=== PATIENT | female | born 1940 | race Caucasian/White ===

== ENCOUNTER → 2018-03-21 07:46 | Outpatient (CLI) | payer MEDICARE, SELFPAY ==
[2018-03-21 09:25] LABS: Alanine Aminotransferase 21 IU/L (9-52); Albumin 4.3 g/dL (3.5-5.0); Albumin Globulin Ratio 1.5 (1.0-2.8); Alkaline Phosphatase 48 U/L (38-126); Aspartate Aminotransferase 24 IU/L (14-36); BUN Creatinine Ratio 16.3 (6-22); Bilirubin Total 1.1 mg/dL (0.2-1.3); Blood Urea Nitrogen 13 mg/dL (7-17); Calcium 9.3 mg/dL (8.4-10.2); Carbon Dioxide 29 mmol/L (22-32); Chloride 104 mmol/L (98-107); Cholesterol 202 mg/dL (140-199); Estimated Glomerular Filt Rate > 60.0 mL/min (>60); Globulin 2.8 g/dL (1.7-4.1); Glucose 100 mg/dL (80-110); HDL Cholesterol 59 mg/dL (40-60); HEMOLYSIS < 15 (0-50); LDL Cholesterol Calculated 115 mg/dL (<100); Sodium 143 mmol/L (137-145); Total Protein 7.1 g/dL (6.3-8.2); Triglycerides 138 mg/dL (35-150)
[2018-03-21 09:41] LABS: Vitamin D 25 Hydroxy (D3) 47.9 ng/mL (30.0-100.0)
== END ==
PROVIDERS: PCP Physician Assistant; Visit Provider Physician Assistant
DX: M85.88 Other specified disorders of bone density and structure, other site (principal); Z78.0 Asymptomatic menopausal state; E28.39 Other primary ovarian failure; E78.5 Hyperlipidemia, unspecified
CPT/HCPCS: 36415; 77080; 80053; 80061; 82306

== ENCOUNTER → 2018-03-22 08:25 | Outpatient (CLI) | payer MEDICARE, SELFPAY ==
--- NOTE | 2018-03-22 08:28 | DI.MG.S_ITS ---
BILATERAL DIGITAL SCREENING MAMMOGRAM 3D/2D WITH CAD: 03/22/2018 CLINICAL: Routine screening. Comparison is made to exams dated: 03/15/2017 mammogram, 03/08/2016 mammogram, and 03/07/2015 mammogram - [facility]. The tissue of both breasts is heterogeneously dense. This may lower the sensitivity of mammography. Current study was also evaluated with a Computer Aided Detection (CAD) system. No significant masses, calcifications, or other findings are seen in either breast. There has been no significant interval change. IMPRESSION: NEGATIVE There is no mammographic evidence of malignancy. A 1 year screening mammogram is recommended. This exam was interpreted at Station ID: [id number]. NOTE: For mammograms, a report in lay terms will be sent to the patient. Approximately 15% of breast malignancies will not be visualized mammographically. In the management of a palpable breast mass, a negative mammogram must not discourage biopsy of a clinically suspicious lesion. Electronically Signed By: Kimberly deal/lizette:03/24/2018 14:48:08 letter sent: Normal Exam ACR BI-RADS Category 1: Negative 3341F
== END ==
PROVIDERS: PCP Physician Assistant; Visit Provider Physician Assistant
DX: Z12.31 Encounter for screening mammogram for malignant neoplasm of breast (principal)
CPT/HCPCS: 77063; 77067

== ENCOUNTER → 2018-08-22 10:25 | Outpatient (CLI) | payer MEDICARE, SELFPAY ==
--- NOTE | 2018-08-22 10:27 | DI.RAD.S_ITS ---
PROCEDURE: XR LUMBAR SPINE 2-3V INDICATIONS: back pain TECHNIQUE: 3 views of the lumbar spine were acquired. COMPARISON: None. FINDINGS: Bones: 5 [id number] vertebrae are present. There is minimal retrolisthesis of L2 on L3. No vertebral body compression fractures. Degenerative endplate changes are noted throughout lumbar spine no prominent at L2-3 level. No suspicious bony lesions. Soft tissues: Overlying bowel gas pattern is normal. No suspicious soft tissue calcifications. IMPRESSION: Minimal retrolisthesis of L2 on L3. Degenerative disc disease throughout lumbar spine. No acute compression fracture. Dictated by: Richie Padilla M.D. on 08/22/2018 at 12:14 Approved by: Richie Padilla M.D. on 08/22/2018 at 12:16
--- NOTE | 2018-08-22 10:27 | DI.RAD.S_ITS ---
PROCEDURE: XR THORACIC SPINE 3V INDICATIONS: back pain TECHNIQUE: 3 views of the thoracic spine were acquired. COMPARISON: None. FINDINGS: Bones: No fractures or dislocations. No suspicious bony lesions. 12 pairs of ribs are noted, and appear intact where visualized. Very mild degenerative endplate changes are noted in mid to lower thoracic spine. Soft tissues: No paravertebral stripe thickening. IMPRESSION: Mild degenerative disc disease in mid to lower thoracic spine. No compression fracture or spondylolisthesis. Dictated by: Richie Padilla M.D. on 08/22/2018 at 12:16 Approved by: Richie Padilla M.D. on 08/22/2018 at 12:17
== END ==
PROVIDERS: PCP Physician Assistant; Visit Provider Registered Nurse
DX: M54.9 Dorsalgia, unspecified (principal); M51.36 Other intervertebral disc degeneration, lumbar region; M51.34 Other intervertebral disc degeneration, thoracic region
CPT/HCPCS: 72072; 72100

== ENCOUNTER → 2019-03-28 08:18 | Outpatient (CLI) | payer MEDICARE, SELFPAY ==
--- NOTE | 2019-03-28 | DI.MG.S_ITS ---
BILATERAL DIGITAL SCREENING MAMMOGRAM 3D/2D WITH CAD: 03/28/2019 CLINICAL: Routine screening. Comparison is made to exams dated: 03/22/2018 mammogram, 03/15/2017 mammogram, and 03/08/2016 mammogram - [facility]. The tissue of both breasts is heterogeneously dense. This may lower the sensitivity of mammography. Current study was also evaluated with a Computer Aided Detection (CAD) system. No significant masses, calcifications, or other findings are seen in either breast. There has been no significant interval change. IMPRESSION: NEGATIVE There is no mammographic evidence of malignancy. A 1 year screening mammogram is recommended. This exam was interpreted at Station ID: [id number]. NOTE: For mammograms, a report in lay terms will be sent to the patient. Approximately 15% of breast malignancies will not be visualized mammographically. In the management of a palpable breast mass, a negative mammogram must not discourage biopsy of a clinically suspicious lesion. Electronically Signed By: Elkin hernandez/lizette:03/30/2019 07:34:27 letter sent: Normal Exam ACR BI-RADS Category 1: Negative 3341F
== END ==
PROVIDERS: PCP Physician Assistant; Visit Provider Physician Assistant
DX: Z12.31 Encounter for screening mammogram for malignant neoplasm of breast (principal)
CPT/HCPCS: 77063; 77067

== ENCOUNTER → 2019-04-16 08:32 | Outpatient (CLI) | payer MEDICARE, SELFPAY ==
[2019-04-16 09:57] LABS: Alanine Aminotransferase 15 IU/L (<35); Albumin 4.3 g/dL (3.5-5.0); Albumin Globulin Ratio 1.7 (1.0-2.8); Alkaline Phosphatase 45 U/L (38-126); Aspartate Aminotransferase 25 IU/L (14-36); BUN Creatinine Ratio 21.3 (6-22); Bilirubin Total 1.6 mg/dL (0.2-1.3); Blood Urea Nitrogen 17 mg/dL (7-17); Calcium 9.2 mg/dL (8.4-10.2); Carbon Dioxide 31 mmol/L (22-32); Chloride 103 mmol/L (98-107); Cholesterol 218 mg/dL (140-199); Estimated Glomerular Filt Rate > 60.0 mL/min (>60); Globulin 2.6 g/dL (1.7-4.1); Glucose 99 mg/dL (80-110); HDL Cholesterol 62 mg/dL (40-60); HEMOLYSIS < 15 (0-50); LDL Cholesterol Calculated 140 mg/dL (<100); Potassium 4.6 mmol/L (3.4-5.1); Sodium 140 mmol/L (137-145); Total Protein 6.9 g/dL (6.3-8.2); Triglycerides 82 mg/dL (35-150)
[2019-04-16 10:36] LABS: Vitamin D 25 Hydroxy (D3) 46.9 ng/mL (30.0-100.0)
== END ==
PROVIDERS: PCP Physician Assistant; Visit Provider Physician Assistant
DX: E78.5 Hyperlipidemia, unspecified (principal); M81.0 Age-related osteoporosis without current pathological fracture
CPT/HCPCS: 36415; 80053; 80061; 82306

== ENCOUNTER → 2019-10-12 13:54 | Outpatient (CLI) | payer MEDICARE, SELFPAY ==
[2019-10-12 14:46] LABS: Bilirubin Total 1.2 mg/dL (0.2-1.3); Cholesterol 210 mg/dL (140-199); HDL Cholesterol 59 mg/dL (40-60); LDL Cholesterol Calculated 111 mg/dL (<100); Triglycerides 200 mg/dL (35-150)
== END ==
PROVIDERS: PCP Physician Assistant; Referring Provider Family Medicine; Visit Provider Physician Assistant
DX: E78.5 Hyperlipidemia, unspecified (principal); R17 Unspecified jaundice
CPT/HCPCS: 36415; 80061; 82247

== ENCOUNTER → 2020-03-29 15:58 | Outpatient (CLI) | payer MEDICARE, SELFPAY ==
--- NOTE | 2020-03-29 16:02 | DI.MG.S_ITS ---
BILATERAL DIGITAL SCREENING MAMMOGRAM 3D/2D WITH CAD: 03/29/2020 CLINICAL: Routine screening. Comparison is made to exams dated: 03/28/2019 mammogram, 03/22/2018 mammogram, and 03/15/2017 mammogram - [facility]. The tissue of both breasts is heterogeneously dense. This may lower the sensitivity of mammography. Current study was also evaluated with a Computer Aided Detection (CAD) system. No significant masses, calcifications, or other findings are seen in either breast. There has been no significant interval change. IMPRESSION: NEGATIVE There is no mammographic evidence of malignancy. A 1 year screening mammogram is recommended. This exam was interpreted at Station ID: [id number]. NOTE: For mammograms, a report in lay terms will be sent to the patient. Approximately 15% of breast malignancies will not be visualized mammographically. In the management of a palpable breast mass, a negative mammogram must not discourage biopsy of a clinically suspicious lesion. Electronically Signed By: Kimberly deal/lizette:03/29/2020 16:29:52 letter sent: Normal Exam ACR BI-RADS Category 1: Negative 3341F
== END ==
PROVIDERS: PCP Family Medicine; Referring Provider Family Medicine; Visit Provider Family Medicine
DX: Z12.31 Encounter for screening mammogram for malignant neoplasm of breast (principal)
CPT/HCPCS: 77063; 77067

== ENCOUNTER → 2020-05-19 14:01 | Outpatient (CLI) | payer MEDICARE, SELFPAY ==
--- NOTE | 2020-05-19 14:03 | DI.RAD.S_ITS ---
PROCEDURE: XR DEXA AXIAL SKELETON INDICATIONS: Osteoporotic Risk COMPARISON: [facility], CR, XR DEXA AXIAL SKELETON, 03/21/2018, 13:22. FINDINGS: This blank DEXA report has been sent in error by the PACS system. The correct and complete report will be forthcoming in 1-2 days. Thank you for your patience and understanding. Dictated by: Shawna Agarwal MD, PhD on 05/19/2020 at 17:21 Approved by: Shawna Agarwal MD, PhD on 05/19/2020 at 17:21
== END ==
PROVIDERS: PCP Family Medicine; Referring Provider Family Medicine; Visit Provider Family Medicine
DX: M85.851 Other specified disorders of bone density and structure, right thigh (principal); Z78.0 Asymptomatic menopausal state; Z82.62 Family history of osteoporosis
CPT/HCPCS: 77080

== ENCOUNTER → 2020-09-08 14:24 | Outpatient (CLI) | payer MEDICARE, SELFPAY ==
--- NOTE | 2020-09-08 14:27 | DI.RAD.S_ITS ---
PROCEDURE: XR HIP W PEL IF DONE RT 2V COMPARISON: None. INDICATIONS: chronic right hip pain FINDINGS: A single view of the pelvis and lateral view of the right hip was performed. Both hips have degenerative changes consistent with osteoarthritis. No fracture. The right sacroiliac joint has degenerative changes. IMPRESSION: No acute abnormality. Degenerative changes of both hips consistent with osteoarthritis. Dictated by: Efrain Llanos M.D. on 09/08/2020 at 18:25 Approved by: Efrain Llanos M.D. on 09/08/2020 at 18:27
--- NOTE | 2020-09-08 14:27 | DI.RAD.S_ITS ---
PROCEDURE: XR LUMBAR SPINE 2-3V INDICATIONS: lower back pain TECHNIQUE: 3 views of the lumbar spine were acquired. COMPARISON: [facility], , XR LUMBAR SPINE 2-3V, 08/22/2018, 10:35. FINDINGS: Bones: There are multilevel degenerative changes of the lumbar spine. There is disc space narrowing at L2-3. No vertebral body height loss. The sacroiliac joints are normal. No fracture. Soft tissues: Overlying bowel gas pattern is normal. No suspicious soft tissue calcifications. IMPRESSION: 1. Multilevel degenerative changes. 2. 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 Dictated by: Efrain Llanos M.D. on 09/08/2020 at 18:27 Approved by: Efrain Llanos M.D. on 09/08/2020 at 18:28
== END ==
PROVIDERS: PCP Family Medicine; Referring Provider Registered Nurse; Visit Provider Registered Nurse
DX: M25.551 Pain in right hip (principal)
CPT/HCPCS: 72100; 73502

== ENCOUNTER → 2020-09-09 08:35 | Outpatient (CLI) | payer MEDICARE, SELFPAY ==
[2020-09-09 09:57] LABS: Alanine Aminotransferase 16 IU/L (<35); Albumin 4.1 g/dL (3.5-5.0); Albumin Globulin Ratio 1.5 (1.0-2.8); Alkaline Phosphatase 41 U/L (38-126); Aspartate Aminotransferase 26 IU/L (14-36); BUN Creatinine Ratio 26.4 (6-22); Bilirubin Total 1.4 mg/dL (0.2-1.3); Blood Urea Nitrogen 19 mg/dL (7-17); Calcium 9.4 mg/dL (8.4-10.2); Carbon Dioxide 31 mmol/L (22-32); Chloride 103 mmol/L (98-107); Cholesterol 197 mg/dL (140-199); Estimated Glomerular Filt Rate > 60.0 mL/min (>60); Globulin 2.8 g/dL (1.7-4.1); Glucose 95 mg/dL (80-110); HDL Cholesterol 63 mg/dL (40-60); HEMOLYSIS < 15 (0-50); LDL Cholesterol Calculated 116 mg/dL (<100); Sodium 138 mmol/L (137-145); Total Protein 6.9 g/dL (6.3-8.2); Triglycerides 89 mg/dL (35-150)
== END ==
PROVIDERS: PCP Family Medicine; Referring Provider Registered Nurse; Visit Provider Registered Nurse
DX: I10 Essential (primary) hypertension (principal); E78.5 Hyperlipidemia, unspecified
CPT/HCPCS: 36415; 80053; 80061

== ENCOUNTER → 2020-09-23 08:40 | Outpatient (CLI) | payer MEDICARE, SELFPAY ==
[2020-09-23 10:03] LABS: Add Manual Diff / Slide Review NO; Basophils Absolute Auto 100 /uL (0-100); Basophils Percent Auto 1.4 % (0-2); Eosinophils Absolute Auto 100 /uL (0-450); Eosinophils Percent Auto 3.1 % (2-4); Hemoglobin 13.3 g/dL (12.0-16.0); Lymphocytes Absolute Auto 1400 /uL (1100-4500); Lymphocytes Percent Auto 32.3 % (25-40); Mean Corpuscular HGB Conc 33.2 % (30-36); Mean Corpuscular Hemoglobin 31.1 PG (26-34); Mean Corpuscular Volume 93.7 fL (80-100); Monocytes Absolute Auto 300 /uL (0-900); Monocytes Percent Auto 7.1 % (3-14); Neutrophils Absolute Auto 2500 /uL (1500-7000); Neutrophils Percent Auto 56.1 % (50-75); Platelet Count 301 X10^3/uL (150-400); Red Blood Cell Count 4.27 X10^6/uL (4.0-5.2); Red Cell Distribution Width 13.1 % (11.6-14.8); White Blood Cell Count 4.4 X10^3/uL (4.5-11.0)
[2020-09-23 10:35] LABS: Alanine Aminotransferase 13 IU/L (<35); Albumin 3.7 g/dL (3.5-5.0); Albumin Globulin Ratio 1.4 (1.0-2.8); Alkaline Phosphatase 41 U/L (38-126); Aspartate Aminotransferase 24 IU/L (14-36); BUN Creatinine Ratio 22.5 (6-22); Bilirubin Total 1.2 mg/dL (0.2-1.3); Blood Urea Nitrogen 16 mg/dL (7-17); Calcium 9.1 mg/dL (8.4-10.2); Carbon Dioxide 29 mmol/L (22-32); Chloride 104 mmol/L (98-107); Cholesterol 176 mg/dL (140-199); Estimated Glomerular Filt Rate > 60.0 mL/min (>60); Globulin 2.6 g/dL (1.7-4.1); Glucose 93 mg/dL (80-110); HDL Cholesterol 56 mg/dL (40-60); HEMOLYSIS < 15 (0-50); LDL Cholesterol Calculated 105 mg/dL (<100); Potassium 4.1 mmol/L (3.4-5.1); Sodium 138 mmol/L (137-145); Total Protein 6.3 g/dL (6.3-8.2); Triglycerides 77 mg/dL (35-150)
== END ==
PROVIDERS: PCP Family Medicine; Referring Provider Registered Nurse; Visit Provider Registered Nurse
DX: R17 Unspecified jaundice (principal); E78.5 Hyperlipidemia, unspecified; E80.6 Other disorders of bilirubin metabolism; I10 Essential (primary) hypertension
CPT/HCPCS: 36415; 80053; 80061; 85025

== ENCOUNTER 2020-10-27 08:15 | Outpatient (RCR) | payer MEDICARE, SELFPAY ==
--- NOTE | 2020-10-13 12:33 | PT.OIE ---
Current Diagnoses Unspecified osteoarthritis, unspecified site (10/13/20) Other intervertebral disc degeneration, lumbar region (10/13/20) Past Medical History (Last Updated 09/09/20 @ 23:48 by NICHOLAS De Jesus) Elevated bilirubin Hypertension Lower back pain Right hip pain Well adult Past Surgical History (Last Reviewed 09/08/20 @ 14:31 by NICHOLAS De Jesus) Status post appendectomy Status post tubal ligation Visit Care Team Role Provider Type Werner Toscano DO Family Provider Physician Primary Care Provider Specialty: Family Practice Address: [address] [place] [address] Email: [email or web address] NICHOLAS De Jesus Attending Provider Advanced General Merchandise Manager Referring Provider Specialty: Medical Address: [address] [place] [address], [facility] Email: [email or web address] Physical Therapy Initial Evaluation PT-OP-A Visit Information Start: 10/13/20 12:05 Freq: Status: Active Protocol: Document 10/13/20 12:05 (Rec: 10/13/20 12:32 [email or web address]) Out-Patient Physical Therapy Visit Information Visit Information Visit Type Initial Evaluation Visit Start Time 09:45 Visit Stop Time 10:30 Total Visit Minutes 45 Visit Number 04/26 Number of CULTURIST Visits 0 Evaluation Information Evaluation Date 10/13/20 Precautions Precautions latex allergy PT-OP-B Current Condition Start: 10/13/20 12:05 Freq: Status: Active Protocol: Document 10/13/20 12:05 (Rec: 10/13/20 12:32 [email or web address]) Current Condition History of Current Condition Onset Date Last fall Current Complaints Bilateral hip pain and stiffness History of Current Condition Zenaida is a 80 yo heathy looking female here for her ongoing bilateral hip pain started last fall. Pt stated her pain is at 6/10 after staying in one position for too long. Getting up from a seated position and taking the first step after standing for awhile tend to hurt her the most. Warm weather; heat pad and Aleve are all helpful. She had tried sitting yoga the past few months and noticed it was helpful but she stopped because she strained her shoulder. Pt walks 1.5 mile in the morning then 3-4 miles in the afternoon. Begining of the walk tends to be hurtful but lessen after. Prior Treatments and Tests B Hip x-ray 09/08/20 IMPRESSION:No acute abnormality. Degenerative changes of both hips consistent with osteoarthritis . lumbar x-ray 09/08/20 IMPRESSION: 1. Multilevel degenerative changes. 2. 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 Treatment Goals Patient/Caregiver Goals 1. To have a home exercise program to address her symptoms 2. to strengthen bilateral LEs PT-OP-C Subjective Start: 10/13/20 12:05 Freq: Status: Active Protocol: Document 10/13/20 12:05 (Rec: 10/13/20 12:32 [email or web address]) Patient Questionnaires Lower Extremity Functional Scale LEFS Score 42 LEFS Impairment 40 to 59% Impaired (Score 32- 47) Other Questionnaire Name and Score pt did not score for questions 16-19 OP-PT Pain Assessment Location B hip Pain Location Details at hip joint to upper thighs Intensity 6 Scale Used Numeric (0 - 10) Description Aching,Pressure Frequency Frequent Pain Aggravating Factors Position,Changing Position, Standing,Sitting,Bending Pain Alleviating Factors Heat,Exercise,Distraction PT-OP-D Balance Start: 10/13/20 12:05 Freq: Status: Active Protocol: Document 10/13/20 12:05 (Rec: 10/13/20 12:32 [email or web address]) Balance Tests Single Limb Standing Single Limb- Right 18,20 Single Limb- Left 21,18 Other Other Balance Tests Performed SLS with UE reach out to balance no discomfort PT-OP-F Manual Assessment Start: 10/13/20 12:05 Freq: Status: Active Protocol: Document 10/13/20 12:05 (Rec: 10/13/20 12:32 [email or web address]) Manual Assessments Soft Tissue Assessment Soft Tissue Mobility Assessment hypertonicity at bilateral hip flexors, gluteal neela PT-OP-K Range of Motion Start: 10/13/20 12:05 Freq: Status: Active Protocol: Document 10/13/20 12:05 (Rec: 10/13/20 12:32 [email or web address]) Hip Goniometric Range of Motion Hip Right Active Hip ROM WFL Yes Straight Leg Raise 90 Left Active Hip ROM WFL Yes Straight Leg Raise 90 PT-OP-L Special Tests Start: 10/13/20 12:05 Freq: Status: Active Protocol: Document 10/13/20 12:05 (Rec: 10/13/20 12:32 [email or web address]) Special Tests Hip Special Tests FADDIR Test Results +VE B Comments pain reproduced at anterior hip joints JOSE DAVID Test Results +VE B Comments pain reproduced at anterior hip joints Scour Test Test Results +VE B Comments pain reproduced at posterior hip joints Straight Leg Raise Test Results -ve Comments >90 no discomfort PT-OP-M Strength Start: 10/13/20 12:05 Freq: Status: Active Protocol: Document 10/13/20 12:05 (Rec: 10/13/20 12:32 [email or web address]) Hip Strength Hip Manual Muscle Testing Right Flexion (L2) 4+ Good+ Extension (S1) 4+ Good+ Abduction 4+ Good+ Adduction 4+ Good+ Comments no pain with resistance Left Flexion (L2) 4+ Good+ Extension (S1) 4+ Good+ Abduction 4+ Good+ Adduction 4+ Good+ Comments no pain with resistance Knee Strength Knee Manual Muscle Testing Left Flexion (S2) 4- Good- Extension (L3) 4- Good- Right Flexion (S2) 4- Good- Extension (L3) 4 Good Ankle/Foot Strength Ankle and Foot Manual Muscle Testing Right Dorsiflexion (L4) 4+ Good+ Plantarflexion (S1) 4+ Good+ Left Dorsiflexion (L4) 4+ Good+ Plantarflexion (S1) 4+ Good+ PT-OP-T Assessment and Plan Start: 10/13/20 12:05 Freq: Status: Active Protocol: Document 10/13/20 12:05 (Rec: 10/13/20 12:32 [email or web address]) Physical Therapy Assessment Rehab Potential Rehabilitation Potential Excellent Evaluation Complexity Number of Personal Factors/Comorbidities 0 Number of Body Systems Impaired 1-2 Clinical Presentation at Evaluation Stable Impairments Impairments Activity Tolerance,Balance, Functional Activities, Functional Mobility,Gait,Pain, Posture,ROM,Soft Tissue Mobility,Strength,Transfers Goals HEP Impairment pt does not have HEP Short Term Goal (STG) pt will be able to partcipate daily HEP safely and independently for pain management and improved overall hip stiffness. STG Duration 4 weeks pain Impairment pain 6/10 with movement initiation after staying in one position Short Term Goal (STG) pt will have pain no more than 4/10 with gait initiation after prolonged sitting. STG Duration 4 weeks Nodulizer Goal (LTG) pt will have pain no more than 2/10 with gait initiation after prolonged sitting. LTG Duration 8 weeks LEFS Impairment pt scores 42 on LEFS Short Term Goal (STG) pt will show improved overall hip strength to score >50 on LEFS STG Duration 4 weeks Longterm Goal (LTG) pt will show improved overall hip strength to score >60 on LEFS LTG Duration 8 weeks Assessment Summary Assessment Zenaida is a 80yo healthy looking female here for her chronic bilateral hip pain started last fall. Upon assessment, pt presents symptoms of classic hip OA bilaterally which aligns with her X-ray findings. Fortunately, pt does not have signs lumbar radiculopathy or low back discomfort. Her overall hip AROM and strength = WFL. She does have joint pain with PROM at end range. Pt will benefit from skilled therapy to develop a ROM ex routine with low impact strengthen ex to maintain her joint health. Physical Therapy Plan Frequency and Duration Frequency of Treatment 2x/Week Duration of Treatment 8 weeks Plan of Care Start Date 10/13/20 Plan of Care End Date 12/12/20 Therapeutic Interventions Therapeutic Interventions Aquatic Therapy,Balance Training,Gait Training,Home Exercise Program,Manual Therapy,Neuromuscular Re- education,Patient/Caregiver Education,Self-Care/Home Management,Soft Tissue Mobilization,Taping, Therapeutic Activities, Therapeutic Exercises Modalities Cold Pack/Ice Massage,Electric Stimulation,Hot Packs, Infrared Therapy,Traction- Mechanical,Ultrasound Next Visit Focus/Plan Next Note Type Treatment Note Next Visit Plan hip stretches figure 4, piriformis, milagro stretch hip strengthening ex bike, leg press
--- NOTE | 2020-10-13 12:33 | PT.OPPOC ---
Physical, Occupational & Speech Therapy At [facility] Current Diagnoses Unspecified osteoarthritis, unspecified site (10/13/20) Other intervertebral disc degeneration, lumbar region (10/13/20) Visit Care Team Role Provider Type Werner Toscano DO Family Provider Physician Primary Care Provider Specialty: Family Practice Address: [address] [place] [address], [facility] Email: [email or web address] NICHOLAS De Jesus Attending Provider Advanced Bottle Blowing Machine Tender Referring Provider Specialty: Medical Address: [address] [place] [address], [id number] Email: [email or web address] Plan Of Care PT-OP-T Assessment and Plan Start: 10/13/20 12:05 Freq: Status: Active Protocol: Document 10/13/20 12:05 (Rec: 10/13/20 12:32 [email or web address]) Physical Therapy Assessment Rehab Potential Rehabilitation Potential Excellent Evaluation Complexity Number of Personal Factors/Comorbidities 0 Number of Body Systems Impaired 1-2 Clinical Presentation at Evaluation Stable Impairments Impairments Activity Tolerance,Balance, Functional Activities, Functional Mobility,Gait,Pain, Posture,ROM,Soft Tissue Mobility,Strength,Transfers Goals HEP Impairment pt does not have HEP Short Term Goal (STG) pt will be able to partcipate daily HEP safely and independently for pain management and improved overall hip stiffness. STG Duration 4 weeks pain Impairment pain 6/10 with movement initiation after staying in one position Short Term Goal (STG) pt will have pain no more than 4/10 with gait initiation after prolonged sitting. STG Duration 4 weeks Fdc Goal (LTG) pt will have pain no more than 2/10 with gait initiation after prolonged sitting. LTG Duration 8 weeks LEFS Impairment pt scores 42 on LEFS Short Term Goal (STG) pt will show improved overall hip strength to score >50 on LEFS STG Duration 4 weeks Fdc Goal (LTG) pt will show improved overall hip strength to score >60 on LEFS LTG Duration 8 weeks Assessment Summary Assessment Zenaida is a 80yo healthy looking female here for her chronic bilateral hip pain started last fall. Upon assessment, pt presents symptoms of classic hip OA bilaterally which aligns with her X-ray findings. Fortunately, pt does not have signs lumbar radiculopathy or low back discomfort. Her overall hip AROM and strength = WFL. She does have joint pain with PROM at end range. Pt will benefit from skilled therapy to develop a ROM ex routine with low impact strengthen ex to maintain her joint health. Physical Therapy Plan Frequency and Duration Frequency of Treatment 2x/Week Duration of Treatment 8 weeks Plan of Care Start Date 10/13/20 Plan of Care End Date 12/12/20 Therapeutic Interventions Therapeutic Interventions Aquatic Therapy,Balance Training,Gait Training,Home Exercise Program,Manual Therapy,Neuromuscular Re- education,Patient/Caregiver Education,Self-Care/Home Management,Soft Tissue Mobilization,Taping, Therapeutic Activities, Therapeutic Exercises Modalities Cold Pack/Ice Massage,Electric Stimulation,Hot Packs, Infrared Therapy,Traction- Mechanical,Ultrasound Next Visit Focus/Plan Next Note Type Treatment Note Next Visit Plan hip stretches figure 4, piriformis, milagro stretch hip strengthening ex bike, leg press Plan of Care Dates Plan of Care Start Date 10/13/20 Plan of Care End Date 12/12/20 Electronically Signed by: Priscilla Holbrook PT 10/13/20 1634 Please Sign and Return: I have reviewed this Plan of Care and certify that the skilled therapy services above are required to meet the patient?s needs. Physician Signature Date Printed Name and Credentials Clinical Instructor Signature Printed Name and Credentials
--- NOTE | 2020-10-21 11:56 | PT.OTN ---
Current Diagnoses Unspecified osteoarthritis, unspecified site (10/21/20) Other intervertebral disc degeneration, lumbar region (10/21/20) Physical Therapy Treatment Note PT-OP-A Visit Information Start: 10/13/20 12:05 Freq: Status: Active Protocol: Document 10/21/20 11:16 HH (Rec: 10/21/20 11:55 [id number]) Out-Patient Physical Therapy Visit Information Visit Information Visit Type Treatment Note Visit Start Time 11:17 Visit Stop Time 12:10 Total Visit Minutes 53 Visit Number 05/27 Number of AIRCRAFT STRUCTURAL REPAIRER Visits 0 PT-OP-B Current Condition Start: 10/13/20 12:05 Freq: Status: Active Protocol: Document 10/13/20 12:05 HH (Rec: 10/13/20 12:32 HH [email or web address]) Current Condition History of Current Condition Onset Date Last fall Current Complaints Bilateral hip pain and stiffness History of Current Condition Zenaida is a 80 yo heathy looking female here for her ongoing bilateral hip pain started last fall. Pt stated her pain is at 6/10 after staying in one position for too long. Getting up from a seated position and taking the first step after standing for awhile tend to hurt her the most. Warm weather; heat pad and Aleve are all helpful. She had tried sitting yoga the past few months and noticed it was helpful but she stopped because she strained her shoulder. Pt walks 1.5 mile in the morning then 3-4 miles in the afternoon. Begining of the walk tends to be hurtful but lessen after. Prior Treatments and Tests B Hip x-ray 09/08/20 IMPRESSION:No acute abnormality. Degenerative changes of both hips consistent with osteoarthritis . lumbar x-ray 09/08/20 IMPRESSION: 1. Multilevel degenerative changes. 2. 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 Treatment Goals Patient/Caregiver Goals 1. To have a home exercise program to address her symptoms 2. to strengthen bilateral LEs PT-OP-C Subjective Start: 10/13/20 12:05 Freq: Status: Active Protocol: Document 10/21/20 11:16 HH (Rec: 10/21/20 11:55 [id number]) OP-PT Subjective Patient Comments Patient Comments I walked a lot outdoor for the past couple so it did irritate my hips. I did rowing the other day and my hip were fine. PT-OP-D Balance Start: 10/13/20 12:05 Freq: Status: Active Protocol: Document 10/13/20 12:05 (Rec: 10/13/20 12:32 [email or web address]) Balance Tests Single Limb Standing Single Limb- Right 18,20 Single Limb- Left 21,18 Other Other Balance Tests Performed SLS with UE reach out to balance no discomfort PT-OP-F Manual Assessment Start: 10/13/20 12:05 Freq: Status: Active Protocol: Document 10/13/20 12:05 HH (Rec: 10/13/20 12:32 [email or web address]) Manual Assessments Soft Tissue Assessment Soft Tissue Mobility Assessment hypertonicity at bilateral hip flexors, gluteal neela PT-OP-K Range of Motion Start: 10/13/20 12:05 Freq: Status: Active Protocol: Document 10/13/20 12:05 HH (Rec: 10/13/20 12:32 [email or web address]) Hip Goniometric Range of Motion Hip Right Active Hip ROM WFL Yes Straight Leg Raise 90 Left Active Hip ROM WFL Yes Straight Leg Raise 90 PT-OP-L Special Tests Start: 10/13/20 12:05 Freq: Status: Active Protocol: Document 10/13/20 12:05 (Rec: 10/13/20 12:32 [email or web address]) Special Tests Hip Special Tests FADDIR Test Results +VE B Comments pain reproduced at anterior hip joints JOSE DAVID Test Results +VE B Comments pain reproduced at anterior hip joints Scour Test Test Results +VE B Comments pain reproduced at posterior hip joints Straight Leg Raise Test Results -ve Comments >90 no discomfort PT-OP-M Strength Start: 10/13/20 12:05 Freq: Status: Active Protocol: Document 10/13/20 12:05 HH (Rec: 10/13/20 12:32 [email or web address]) Hip Strength Hip Manual Muscle Testing Right Flexion (L2) 4+ Good+ Extension (S1) 4+ Good+ Abduction 4+ Good+ Adduction 4+ Good+ Comments no pain with resistance Left Flexion (L2) 4+ Good+ Extension (S1) 4+ Good+ Abduction 4+ Good+ Adduction 4+ Good+ Comments no pain with resistance Knee Strength Knee Manual Muscle Testing Left Flexion (S2) 4- Good- Extension (L3) 4- Good- Right Flexion (S2) 4- Good- Extension (L3) 4 Good Ankle/Foot Strength Ankle and Foot Manual Muscle Testing Right Dorsiflexion (L4) 4+ Good+ Plantarflexion (S1) 4+ Good+ Left Dorsiflexion (L4) 4+ Good+ Plantarflexion (S1) 4+ Good+ PT-OP-Q Treatments Start: 10/13/20 12:05 Freq: Status: Active Protocol: Document 10/21/20 11:16 HH (Rec: 10/21/20 11:55 [id number]) Cardio Equipment Recumbent Bicycle Duration (Minutes) 2 Resistance 5 Other reports of hip pain. Bicycle (Upright) Duration (Minutes) 4 Resistance 5 Seat Position 4 Other no discomfort Therapeutic Exercises Supine Exercises milagro stretch Reps/Minutes 15 sec x 4 Comments for HEP. figure 4 Reps/Minutes 15 sec x 4 Comments for HEP piriformis stretch Reps/Minutes 15 sec x 4 Comments pain at anterior hip, discontinue Standing Exercises hip ext Standing Exercise Name elbow on table Side bilateral Reps/Minutes 8x2 Comments for HEP hip abd Side bilateral Reps/Minutes 8 x2 Comments for HEP Manual Therapy Treatment Soft Tissue Mobilization hip flexors Mobilization Type Sustained Pressure,Trigger Point Release Intensity/Depth Moderate Body Position Supine Comments significant toncity noted but relieved after PT-OP-R Modalities Start: 10/13/20 12:05 Freq: Status: Active Protocol: Document 10/21/20 11:16 HH (Rec: 10/21/20 11:56 [id number]) Hot Pack/Cold Pack Treatment Hot Pack Location B hips Patient Position Hooklying Treatment Duration (minutes) 10 Patient Tolerance Good PT-OP-T Assessment and Plan Start: 10/13/20 12:05 Freq: Status: Active Protocol: Document 10/21/20 11:16 (Rec: 10/21/20 11:55 [id number]) Physical Therapy Assessment Goals HEP Impairment pt does not have HEP Short Term Goal (STG) pt will be able to partcipate daily HEP safely and independently for pain management and improved overall hip stiffness. STG Duration 4 weeks pain Impairment pain 6/10 with movement initiation after staying in one position Short Term Goal (STG) pt will have pain no more than 4/10 with gait initiation after prolonged sitting. STG Duration 4 weeks Fdc Goal (LTG) pt will have pain no more than 2/10 with gait initiation after prolonged sitting. LTG Duration 8 weeks LEFS Impairment pt scores 42 on LEFS Short Term Goal (STG) pt will show improved overall hip strength to score >50 on LEFS STG Duration 4 weeks Counter Professional Goal (LTG) pt will show improved overall hip strength to score >60 on LEFS LTG Duration 8 weeks Assessment Summary Assessment first tx session with pt today and spent time educating on OA management with ROM ex and low impact strengthening ex. Pt tends to have pain with end range hip flexion ,ER and add . She does mallory very well with figure 4 and milagro stretch. Physical Therapy Plan Frequency and Duration Frequency of Treatment 2x/Week Duration of Treatment 8 weeks Plan of Care Start Date 10/13/20 Plan of Care End Date 12/12/20 Therapeutic Interventions Therapeutic Interventions Aquatic Therapy,Balance Training,Gait Training,Home Exercise Program,Manual Therapy,Neuromuscular Re- education,Patient/Caregiver Education,Self-Care/Home Management,Soft Tissue Mobilization,Taping, Therapeutic Activities, Therapeutic Exercises Modalities Cold Pack/Ice Massage,Electric Stimulation,Hot Packs, Infrared Therapy,Traction- Mechanical,Ultrasound Next Visit Focus/Plan Next Note Type Treatment Note Next Visit Plan hip stretches figure 4, piriformis, milagro stretch hip strengthening ex bike, leg press
--- NOTE | 2020-10-25 15:14 | PT.OTN ---
Current Diagnoses Unspecified osteoarthritis, unspecified site (10/25/20) Other intervertebral disc degeneration, lumbar region (10/25/20) Physical Therapy Treatment Note PT-OP-A Visit Information Start: 10/13/20 12:05 Freq: Status: Active Protocol: Document 10/25/20 15:07 OF (Rec: 10/25/20 15:13 OF [id number]) Out-Patient Physical Therapy Visit Information Visit Information Visit Type Treatment Note Visit Start Time 14:31 Visit Stop Time 15:05 Total Visit Minutes 34 Visit Number 06/24 Evaluation Information Evaluation Date 10/13/20 Precautions Precautions latex allergy PT-OP-B Current Condition Start: 10/13/20 12:05 Freq: Status: Active Protocol: Document 10/13/20 12:05 HH (Rec: 10/13/20 12:32 HH [email or web address]) Current Condition History of Current Condition Onset Date Last fall Current Complaints Bilateral hip pain and stiffness History of Current Condition Zenaida is a 80 yo heathy looking female here for her ongoing bilateral hip pain started last fall. Pt stated her pain is at 6/10 after staying in one position for too long. Getting up from a seated position and taking the first step after standing for awhile tend to hurt her the most. Warm weather; heat pad and Aleve are all helpful. She had tried sitting yoga the past few months and noticed it was helpful but she stopped because she strained her shoulder. Pt walks 1.5 mile in the morning then 3-4 miles in the afternoon. Begining of the walk tends to be hurtful but lessen after. Prior Treatments and Tests B Hip x-ray 09/08/20 IMPRESSION:No acute abnormality. Degenerative changes of both hips consistent with osteoarthritis . lumbar x-ray 09/08/20 IMPRESSION: 1. Multilevel degenerative changes. 2. 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 Treatment Goals Patient/Caregiver Goals 1. To have a home exercise program to address her symptoms 2. to strengthen bilateral LEs PT-OP-C Subjective Start: 10/13/20 12:05 Freq: Status: Active Protocol: Document 10/25/20 15:07 OF (Rec: 10/25/20 15:13 OF [id number]) OP-PT Subjective Patient Comments Patient Comments pt states she has been feeling better with HEP Patient Reported Progress Improving OP-PT Pain Assessment Pain Assessment Grid Paper Pain Assessment Grid Completed No: pt denies pain today PT-OP-D Balance Start: 10/13/20 12:05 Freq: Status: Active Protocol: Document 10/13/20 12:05 (Rec: 10/13/20 12:32 [email or web address]) Balance Tests Single Limb Standing Single Limb- Right 18,20 Single Limb- Left 21,18 Other Other Balance Tests Performed SLS with UE reach out to balance no discomfort PT-OP-F Manual Assessment Start: 10/13/20 12:05 Freq: Status: Active Protocol: Document 10/13/20 12:05 HH (Rec: 10/13/20 12:32 [email or web address]) Manual Assessments Soft Tissue Assessment Soft Tissue Mobility Assessment hypertonicity at bilateral hip flexors, gluteal neela PT-OP-K Range of Motion Start: 10/13/20 12:05 Freq: Status: Active Protocol: Document 10/13/20 12:05 HH (Rec: 10/13/20 12:32 [email or web address]) Hip Goniometric Range of Motion Hip Right Active Hip ROM WFL Yes Straight Leg Raise 90 Left Active Hip ROM WFL Yes Straight Leg Raise 90 PT-OP-L Special Tests Start: 10/13/20 12:05 Freq: Status: Active Protocol: Document 10/13/20 12:05 (Rec: 10/13/20 12:32 [email or web address]) Special Tests Hip Special Tests FADDIR Test Results +VE B Comments pain reproduced at anterior hip joints JOSE DAVID Test Results +VE B Comments pain reproduced at anterior hip joints Scour Test Test Results +VE B Comments pain reproduced at posterior hip joints Straight Leg Raise Test Results -ve Comments >90 no discomfort PT-OP-M Strength Start: 10/13/20 12:05 Freq: Status: Active Protocol: Document 10/13/20 12:05 (Rec: 10/13/20 12:32 [email or web address]) Hip Strength Hip Manual Muscle Testing Right Flexion (L2) 4+ Good+ Extension (S1) 4+ Good+ Abduction 4+ Good+ Adduction 4+ Good+ Comments no pain with resistance Left Flexion (L2) 4+ Good+ Extension (S1) 4+ Good+ Abduction 4+ Good+ Adduction 4+ Good+ Comments no pain with resistance Knee Strength Knee Manual Muscle Testing Left Flexion (S2) 4- Good- Extension (L3) 4- Good- Right Flexion (S2) 4- Good- Extension (L3) 4 Good Ankle/Foot Strength Ankle and Foot Manual Muscle Testing Right Dorsiflexion (L4) 4+ Good+ Plantarflexion (S1) 4+ Good+ Left Dorsiflexion (L4) 4+ Good+ Plantarflexion (S1) 4+ Good+ PT-OP-Q Treatments Start: 10/13/20 12:05 Freq: Status: Active Protocol: Document 10/25/20 15:07 OF (Rec: 10/25/20 15:13 OF [id number]) Cardio Equipment Bicycle (Upright) Duration (Minutes) 6 Resistance 5 Seat Position 4 Other no discomfort Gym Equipment Shuttle Rebound leg press Reps/Duration 2x10 Comments 50# Therapeutic Exercises Supine Exercises milagro stretch Reps/Minutes 15 sec x 4 Comments for HEP. figure 4 Reps/Minutes 15 sec x 4 Comments for HEP piriformis stretch Reps/Minutes 15 sec x 4 Standing Exercises minisquats Side bilateral Reps/Minutes 3x10 hip ext Standing Exercise Name elbow on table Side bilateral Equipment Used TB 2 Reps/Minutes 10x2 Comments for HEP Manual Therapy Treatment Joint Mobilizations hip MWM Joint Bilat hips Direction Lat/Inf Grade III Body Position Supine Reps/Duration [id number] Bilat Comments Inferior glide with lateral distraction using belt and MWM . Pt reports no discomfort. 90 degree flex through 10 flexion Self-Care/Home Management Treatment Education Patient Education Body Mechanics,Home Exercise Program PT-OP-R Modalities Start: 10/13/20 12:05 Freq: Status: Active Protocol: Document 10/21/20 11:16 HH (Rec: 10/21/20 11:56 HH [id number]) Hot Pack/Cold Pack Treatment Hot Pack Location B hips Patient Position Hooklying Treatment Duration (minutes) 10 Patient Tolerance Good PT-OP-T Assessment and Plan Start: 10/13/20 12:05 Freq: Status: Active Protocol: Document 10/25/20 15:07 OF (Rec: 10/25/20 15:13 OF [id number]) Physical Therapy Assessment Rehab Potential Rehabilitation Potential Excellent Evaluation Complexity Number of Personal Factors/Comorbidities 1-2 Number of Body Systems Impaired 1-2 Clinical Presentation at Evaluation Stable Impairments Impairments Pain Goals HEP Impairment pt does not have HEP Short Term Goal (STG) pt will be able to partcipate daily HEP safely and independently for pain management and improved overall hip stiffness. STG Duration 4 weeks pain Impairment pain 6/10 with movement initiation after staying in one position Short Term Goal (STG) pt will have pain no more than 4/10 with gait initiation after prolonged sitting. STG Duration 4 weeks Fpc Goal (LTG) pt will have pain no more than 2/10 with gait initiation after prolonged sitting. LTG Duration 8 weeks LEFS Impairment pt scores 42 on LEFS Short Term Goal (STG) pt will show improved overall hip strength to score >50 on LEFS STG Duration 4 weeks In Home Nanny Goal (LTG) pt will show improved overall hip strength to score >60 on LEFS LTG Duration 8 weeks Progress Towards Goals Progress Towards Goals Progressing Toward Goals Assessment Summary Assessment Zenaida has reported improved symptoms with HEP, she demonstrates good form with squats and has self initiated adding 4lb dumbells. She has good awareness for stretches and has continued walking Physical Therapy Plan Frequency and Duration Frequency of Treatment 2x/Week Duration of Treatment 8 weeks Plan of Care Start Date 10/13/20 Plan of Care End Date 12/12/20 Next Visit Focus/Plan Next Note Type Treatment Note Next Visit Plan hip stretches figure 4, milagro stretch hip strengthening ex bike, leg press, assess HEP for weighted minisquats
--- NOTE | 2020-10-27 08:55 | PT.OTN ---
Current Diagnoses Unspecified osteoarthritis, unspecified site (10/27/20) Other intervertebral disc degeneration, lumbar region (10/27/20) Physical Therapy Treatment Note PT-OP-A Visit Information Start: 10/13/20 12:05 Freq: Status: Active Protocol: Document 10/27/20 08:13 HH (Rec: 10/27/20 08:55 [id number]) Out-Patient Physical Therapy Visit Information Visit Information Visit Type Discharge Summary Visit Start Time 08:15 Visit Stop Time 09:00 Total Visit Minutes 45 Visit Number 07/25 PT-OP-B Current Condition Start: 10/13/20 12:05 Freq: Status: Active Protocol: Document 10/13/20 12:05 HH (Rec: 10/13/20 12:32 [email or web address]) Current Condition History of Current Condition Onset Date Last fall Current Complaints Bilateral hip pain and stiffness History of Current Condition Zenaida is a 80 yo heathy looking female here for her ongoing bilateral hip pain started last fall. Pt stated her pain is at 6/10 after staying in one position for too long. Getting up from a seated position and taking the first step after standing for awhile tend to hurt her the most. Warm weather; heat pad and Aleve are all helpful. She had tried sitting yoga the past few months and noticed it was helpful but she stopped because she strained her shoulder. Pt walks 1.5 mile in the morning then 3-4 miles in the afternoon. Begining of the walk tends to be hurtful but lessen after. Prior Treatments and Tests B Hip x-ray 09/08/20 IMPRESSION:No acute abnormality. Degenerative changes of both hips consistent with osteoarthritis . lumbar x-ray 09/08/20 IMPRESSION: 1. Multilevel degenerative changes. 2. 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 Treatment Goals Patient/Caregiver Goals 1. To have a home exercise program to address her symptoms 2. to strengthen bilateral LEs PT-OP-C Subjective Start: 10/13/20 12:05 Freq: Status: Active Protocol: Document 10/27/20 08:13 HH (Rec: 10/27/20 08:55 [id number]) OP-PT Subjective Patient Comments Patient Comments I like all the exercises so far. I walked on uneven surface yesterday and it bothers me but im fine today. Patient Reported Progress Improving PT-OP-D Balance Start: 10/13/20 12:05 Freq: Status: Active Protocol: Document 10/13/20 12:05 (Rec: 10/13/20 12:32 [email or web address]) Balance Tests Single Limb Standing Single Limb- Right 18,20 Single Limb- Left 21,18 Other Other Balance Tests Performed SLS with UE reach out to balance no discomfort PT-OP-F Manual Assessment Start: 10/13/20 12:05 Freq: Status: Active Protocol: Document 10/13/20 12:05 (Rec: 10/13/20 12:32 [email or web address]) Manual Assessments Soft Tissue Assessment Soft Tissue Mobility Assessment hypertonicity at bilateral hip flexors, gluteal neela PT-OP-K Range of Motion Start: 10/13/20 12:05 Freq: Status: Active Protocol: Document 10/13/20 12:05 (Rec: 10/13/20 12:32 [email or web address]) Hip Goniometric Range of Motion Hip Right Active Hip ROM WFL Yes Straight Leg Raise 90 Left Active Hip ROM WFL Yes Straight Leg Raise 90 PT-OP-L Special Tests Start: 10/13/20 12:05 Freq: Status: Active Protocol: Document 10/13/20 12:05 (Rec: 10/13/20 12:32 [email or web address]) Special Tests Hip Special Tests FADDIR Test Results +VE B Comments pain reproduced at anterior hip joints JOSE DAVID Test Results +VE B Comments pain reproduced at anterior hip joints Scour Test Test Results +VE B Comments pain reproduced at posterior hip joints Straight Leg Raise Test Results -ve Comments >90 no discomfort PT-OP-M Strength Start: 10/13/20 12:05 Freq: Status: Active Protocol: Document 10/13/20 12:05 (Rec: 10/13/20 12:32 [email or web address]) Hip Strength Hip Manual Muscle Testing Right Flexion (L2) 4+ Good+ Extension (S1) 4+ Good+ Abduction 4+ Good+ Adduction 4+ Good+ Comments no pain with resistance Left Flexion (L2) 4+ Good+ Extension (S1) 4+ Good+ Abduction 4+ Good+ Adduction 4+ Good+ Comments no pain with resistance Knee Strength Knee Manual Muscle Testing Left Flexion (S2) 4- Good- Extension (L3) 4- Good- Right Flexion (S2) 4- Good- Extension (L3) 4 Good Ankle/Foot Strength Ankle and Foot Manual Muscle Testing Right Dorsiflexion (L4) 4+ Good+ Plantarflexion (S1) 4+ Good+ Left Dorsiflexion (L4) 4+ Good+ Plantarflexion (S1) 4+ Good+ PT-OP-Q Treatments Start: 10/13/20 12:05 Freq: Status: Active Protocol: Document 10/27/20 08:13 (Rec: 10/27/20 08:55 [id number]) Cardio Equipment Bicycle (Upright) Duration (Minutes) 6 Resistance 5 Seat Position 4 Other no discomfort Gym Equipment Shuttle Rebound leg press Exercise Details SL squat Reps/Duration 2x10 Comments 37# Therapeutic Exercises Supine Exercises bridging Reps/Minutes 10 x1 Comments for HEP, 3 sec hold at top milagro stretch Reps/Minutes 15 sec x 4 Comments for HEP. figure 4 Reps/Minutes 15 sec x 4 Comments for HEP Standing Exercises hip ext Standing Exercise Name elbow on table Side bilateral Equipment Used TB 2 Reps/Minutes 10x2 Comments for HEP hip abd Side bilateral Reps/Minutes 8 x2 Comments for HEP Manual Therapy Treatment Soft Tissue Mobilization hip flexors Mobilization Type Sustained Pressure,Trigger Point Release Intensity/Depth Moderate Body Position Supine Comments reduced toncity noted but relieved after Joint Mobilizations hip MWM Joint Bilat hips Direction Lat/Inf Grade III Body Position Supine Reps/Duration [id number] Bilat Comments Inferior glide with lateral distraction using belt and MWM . Pt reports no discomfort. 90 degree flex through 10 flexion PT-OP-R Modalities Start: 10/13/20 12:05 Freq: Status: Active Protocol: Document 10/21/20 11:16 (Rec: 10/21/20 11:56 [id number]) Hot Pack/Cold Pack Treatment Hot Pack Location B hips Patient Position Hooklying Treatment Duration (minutes) 10 Patient Tolerance Good PT-OP-T Assessment and Plan Start: 10/13/20 12:05 Freq: Status: Active Protocol: Document 10/27/20 08:13 (Rec: 10/27/20 08:55 [id number]) Physical Therapy Assessment Goals HEP Impairment pt does not have HEP Short Term Goal (STG) pt will be able to partcipate daily HEP safely and independently for pain management and improved overall hip stiffness. STG Duration 4 weeks pain Impairment pain 6/10 with movement initiation after staying in one position Short Term Goal (STG) pt will have pain no more than 4/10 with gait initiation after prolonged sitting. STG Duration 4 weeks Alf Goal (LTG) pt will have pain no more than 2/10 with gait initiation after prolonged sitting. LTG Duration 8 weeks LEFS Impairment pt scores 42 on LEFS Short Term Goal (STG) pt will show improved overall hip strength to score >50 on LEFS STG Duration 4 weeks Sales Correspondence Clerk Goal (LTG) pt will show improved overall hip strength to score >60 on LEFS LTG Duration 8 weeks Assessment Summary Assessment pt has been very compliant to her HEP with good understanding of POC and symptoms management. She requested to be DC from PT at this point . Spent time reviewing all HEP today and she completed them safely and independently. Physical Therapy Plan Frequency and Duration Frequency of Treatment 2x/Week Duration of Treatment 8 weeks Plan of Care Start Date 10/13/20 Plan of Care End Date 12/12/20 Therapeutic Interventions Therapeutic Interventions Aquatic Therapy,Balance Training,Gait Training,Home Exercise Program,Manual Therapy,Neuromuscular Re- education,Patient/Caregiver Education,Self-Care/Home Management,Soft Tissue Mobilization,Taping, Therapeutic Activities, Therapeutic Exercises Modalities Cold Pack/Ice Massage,Electric Stimulation,Hot Packs, Infrared Therapy,Traction- Mechanical,Ultrasound Discharge Physical Therapy Discharge Reasons Patient Request Next Visit Focus/Plan Next Note Type Treatment Note Next Visit Plan hip stretches figure Neeraj, milagro stretch hip strengthening ex bike, leg press, assess HEP for weighted minisquats
== END 2020-10-31 10:03 | disposition home or self-care (01) ==
LOC: PHYS 08:15
PROVIDERS: Family Provider Family Medicine; PCP Family Medicine; Referring Provider Registered Nurse; Visit Provider Registered Nurse
DX: M51.36 Other intervertebral disc degeneration, lumbar region (principal); M19.90 Unspecified osteoarthritis, unspecified site
CPT/HCPCS: 97110; 97140; 97161

== ENCOUNTER → 2021-03-24 16:11 | Outpatient (CLI) | payer MEDICARE, SELFPAY ==
--- NOTE | 2021-03-24 | DI.MG.S_ITS ---
BILATERAL DIGITAL SCREENING MAMMOGRAM 3D/2D WITH CAD: 03/24/2021 CLINICAL: Routine screening. Comparison is made to exams dated: 03/29/2020 mammogram, 03/28/2019 mammogram, and 03/22/2018 mammogram - [facility]. The tissue of both breasts is heterogeneously dense. This may lower the sensitivity of mammography. Current study was also evaluated with a Computer Aided Detection (CAD) system. No significant masses, calcifications, or other findings are seen in either breast. There has been no significant interval change. IMPRESSION: NEGATIVE There is no mammographic evidence of malignancy. A 1 year screening mammogram is recommended. This exam was interpreted at Station ID: [id number]. NOTE: For mammograms, a report in lay terms will be sent to the patient. Approximately 15% of breast malignancies will not be visualized mammographically. In the management of a palpable breast mass, a negative mammogram must not discourage biopsy of a clinically suspicious lesion. Electronically Signed By: Elkin hernandez/lizette:03/24/2021 16:51:21 letter sent: Normal Exam ACR BI-RADS Category 1: Negative [id number]
== END ==
PROVIDERS: Family Provider Family Medicine; PCP Family Medicine; Referring Provider Family Medicine; Visit Provider Family Medicine
DX: Z12.31 Encounter for screening mammogram for malignant neoplasm of breast (principal)
CPT/HCPCS: 77063; 77067

== ENCOUNTER → 2022-03-28 10:32 | Outpatient (CLI) | payer MEDICARE, SELFPAY ==
--- NOTE | 2022-03-28 10:35 | DI.MG.S_ITS ---
BILATERAL DIGITAL SCREENING MAMMOGRAM 3D/2D WITH CAD: 03/28/2022 CLINICAL: Routine screening. Comparison is made to exams dated: 03/24/2021 mammogram, 03/29/2020 mammogram, and 03/28/2019 mammogram - [facility]. Both breasts are heterogeneously dense, which may obscure small masses (category c / 51-75% glandular tissue). Current study was also evaluated with a Computer Aided Detection (CAD) system. No significant masses, calcifications, or other findings are seen in either breast. There has been no significant interval change. IMPRESSION: NEGATIVE There is no mammographic evidence of malignancy. A 1 year screening mammogram is recommended. Based on the Tyrer Cuzick model (a risk assessment model) the patient's lifetime risk is 0.7% and her 10 year risk is 0.0%. According to the ACR, ACS, and NCCN guidelines, an annual breast MRI exam along with mammogram is recommended if the patient's lifetime risk is 20% or greater. This exam was interpreted at Station ID: [id number]. NOTE: For mammograms, a report in lay terms will be sent to the patient. Approximately 15% of breast malignancies will not be visualized mammographically. In the management of a palpable breast mass, a negative mammogram must not discourage biopsy of a clinically suspicious lesion. Electronically Signed By: Roge Phelps M.D., jr/lizette:03/28/2022 13:27:23 letter sent: Normal Exam ACR BI-RADS Category 1: Negative [id number]
== END ==
PROVIDERS: Family Provider Family Medicine; PCP Family Medicine; Referring Provider Family Medicine; Visit Provider Family Medicine
DX: Z12.31 Encounter for screening mammogram for malignant neoplasm of breast (principal)
CPT/HCPCS: 77063; 77067

== ENCOUNTER → 2022-05-31 17:05 | Outpatient (CLI) | payer MEDICARE, SELFPAY ==
--- NOTE | 2022-05-31 17:09 | DI.RAD.S_ITS ---
PROCEDURE: XR HIP W PEL IF DONE RT 2V INDICATIONS: Worsening R hip pain TECHNIQUE: AP pelvis with lateral view(s) of the right hip(s). COMPARISON: [facility], CR, XR HIP W PEL IF DONE RT 2V, 09/08/2020, 14:27. FINDINGS: Bones: No fractures or dislocations. Moderate right worse than left bilateral hip joint osteoarthritic changes are seen with joint space narrowing, subchondral sclerosis and marginal osteophyte formation. No evidence of avascular necrosis of femoral head. Pelvic ring appears intact. No suspicious bony lesions. Soft tissues: The visualized bowel gas pattern is normal. No suspicious soft tissue calcifications. IMPRESSION: Moderate right hip joint osteoarthritis. No right hip fracture or dislocation. No evidence of avascular necrosis. Dictated by: Richie Padilla M.D. on 06/01/2022 at 8:51 Approved by: Richie Padilla M.D. on 06/01/2022 at 8:52
== END ==
PROVIDERS: Family Provider Family Medicine; PCP Family Medicine; Referring Provider Family Medicine; Visit Provider Family Medicine
DX: M16.0 Bilateral primary osteoarthritis of hip (principal); M25.551 Pain in right hip; E78.5 Hyperlipidemia, unspecified; I10 Essential (primary) hypertension; Z86.39 Personal history of other endocrine, nutritional and metabolic disease
CPT/HCPCS: 73502

== ENCOUNTER → 2022-06-02 08:30 | Outpatient (CLI) | payer MEDICARE, SELFPAY ==
[2022-06-02 09:49] LABS: Add Manual Diff / Slide Review NO; Basophils Absolute Auto 100 /uL (0-100); Basophils Percent Auto 1.2 % (0-2); Eosinophils Absolute Auto 200 /uL (0-450); Eosinophils Percent Auto 3.8 % (2-4); Hematocrit 42.8 % (36-46); Lymphocytes Absolute Auto 1300 /uL (1100-4500); Mean Corpuscular HGB Conc 32.7 % (30-36); Mean Corpuscular Hemoglobin 30.4 PG (26-34); Mean Corpuscular Volume 93.1 fL (80-100); Monocytes Absolute Auto 400 /uL (0-900); Monocytes Percent Auto 8.3 % (3-14); Neutrophils Absolute Auto 2600 /uL (1500-7000); Neutrophils Percent Auto 57.7 % (50-75); Platelet Count 316 X10^3/uL (150-400); Red Cell Distribution Width 13.6 % (11.6-14.8); White Blood Cell Count 4.5 X10^3/uL (4.5-11.0)
[2022-06-02 10:01] LABS: Alanine Aminotransferase 20 IU/L (<35); Albumin 4.1 g/dL (3.5-5.0); Albumin Globulin Ratio 1.4 (1.0-2.8); Alkaline Phosphatase 55 U/L (38-126); Aspartate Aminotransferase 24 IU/L (14-36); BUN Creatinine Ratio 23.6 (6-22); Bilirubin Total 1.4 mg/dL (0.2-1.3); Blood Urea Nitrogen 17 mg/dL (7-17); Calcium 8.9 mg/dL (8.4-10.2); Carbon Dioxide 29 mmol/L (22-32); Chloride 102 mmol/L (98-107); Cholesterol 220 mg/dL (140-199); Estimated Glomerular Filt Rate > 60 mL/min (>60); Glucose 101 mg/dL (80-110); HDL Cholesterol 61 mg/dL (40-60); HEMOLYSIS < 15 (0-50); LDL Cholesterol Calculated 141 mg/dL (<100); Potassium 4.1 mmol/L (3.4-5.1); Sodium 138 mmol/L (137-145); Total Protein 7.1 g/dL (6.3-8.2); Triglycerides 89 mg/dL (35-150)
[2022-06-05 08:29] LABS: Calcium 9.4 mg/dL (8.7-10.3); Parathyroid Hormone, Intact 34 pg/mL (15-65)
== END ==
PROVIDERS: Family Provider Family Medicine; PCP Family Medicine; Referring Provider Family Medicine; Visit Provider Family Medicine
DX: E78.5 Hyperlipidemia, unspecified (principal); I10 Essential (primary) hypertension; Z86.39 Personal history of other endocrine, nutritional and metabolic disease
CPT/HCPCS: 36415; 80053; 80061; 82310; 83970; 84443; 85025

== ENCOUNTER 2022-10-11 16:00 | Outpatient (RCR) | payer MEDICARE, SELFPAY ==
--- NOTE | 2022-07-26 14:56 | PT.OIE ---
Addendum entered and electronically signed by Crystal Fox, PT 07/26/22 18:12: LEFS: 44/80 Original Note: Current Diagnoses Pain in right hip (07/26/22) Pain in left hip (07/26/22) Pain in right thigh (07/26/22) Pain in left thigh (07/26/22) Difficulty in walking, not elsewhere classified (07/26/22) Abnormal posture (07/26/22) Weakness (07/26/22) Past Medical History (Last Reviewed 05/31/22 @ 17:19 by Werner Toscano DO) Elevated bilirubin Hypertension Lower back pain Osteopenia Right hip pain Well adult Past Surgical History (Last Reviewed 05/31/22 @ 17:19 by Werner Toscano DO) Status post appendectomy Status post tubal ligation Visit Care Team Role Provider Type Werner Toscano DO Attending Provider Physician Family Provider Primary Care Provider Referring Provider Specialty: [facility] Practice Address: [address] [place] [address], [facility] Email: [email or web address] Physical Therapy Initial Evaluation PT-OP-A Visit Information Start: 07/25/22 17:48 Freq: Status: Active Protocol: Document 07/26/22 10:37 [facility] (Rec: 07/26/22 11:21 [facility] [id number]) Out-Patient Physical Therapy Visit Information Visit Information Visit Type Initial Evaluation Visit Note 04/17 Visit Start Time 10:37 Visit Stop Time 11:20 Total Visit Minutes 43 Visit Number 1 Number of MANAGEMENT AND BUDGET ANALYST Visits 0 PT-OP-B Current Condition Start: 07/25/22 17:48 Freq: Status: Active Protocol: Document 07/26/22 10:37 [facility] (Rec: 07/26/22 11:21 [facility] [id number]) Current Condition History of Current Condition Onset Date years Current Complaints B hip and thigh pain History of Current Condition Pt reports all of sudden, she was walking and she can't walk as she used to. She has tried to do the bike at the pool as MD recomended but it gave stabbing pain in the thighs ( about 1 year ago). She has difficulty getting up from sitting. All of this has happened recently. It has gotten worse since it first started. First it was only R hip then the L hip started hurting. She did come to PT 2019 or 2020 and she got PT exercises that she still does (milagro test, figure 4, hip abd stand, hip ex stand, bridge, squat). Pt reports she doen'st go to a yoga studio anymore as she feels like it is hard to get up/down from ground so only does it at home . Pt reports a few years ago, in the AM she couldn't move her legs and saw a doc and she got meds and exercises for back. Pt walks at least 30 min and lately she has tried to do 1 hr. The up is okay but the down she feels like she has a hard time controlling the down. Pt ends up having to limp and do small steps. In the beginning it is small steps then gets more. She tries to stretch out her back and pelvis and stride to help. WHen seh stands longer than an hr like in kitchen it is bad pain. 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 PT-OP-C Subjective Start: 07/25/22 17:48 Freq: Status: Active Protocol: Document 07/26/22 10:37 [facility] (Rec: 07/26/22 11:21 [facility] [id number]) Patient Questionnaires Lower Extremity Functional Scale LEFS Score 48 OP-PT Pain Assessment Location B hip pain Pain Location Details ant and post/lat hip Frequency Intermittent Radiating Location ant thighs B Pain Aggravating Factors Standing,Walking Other Pain Aggravating Factors cross legs in sitting; sit to stand Pain Alleviating Factors Heat,Exercise PT-OP-D Balance Start: 07/25/22 17:48 Freq: Status: Active Protocol: Document 07/26/22 10:37 [facility] (Rec: 07/26/22 11:21 [facility] [id number]) Balance Tests Single Limb Standing Single Limb- Right >30 sec UEs to sides Single Limb- Left 20 sec UEs to sides PT-OP-E Functional Tests Start: 07/26/22 14:45 Freq: Status: Active Protocol: Document 07/26/22 10:37 [facility] (Rec: 07/26/22 14:49 [facility] [id number]) Functional Tests 30 Second Sit to Stand Test Score 7 Five Times Sit to Stand Test Score 20 sec PT-OP-F Manual Assessment Start: 07/25/22 17:48 Freq: Status: Active Protocol: Document 07/26/22 10:37 [facility] (Rec: 07/26/22 11:21 [facility] [id number]) Manual Assessments Soft Tissue Assessment Soft Tissue Mobility Assessment tenderness and tightness in glutes, piriformis, ITB , lat quads, iliacus B Joint Mobility Assessment Joint Mobility Assessment iliac crest height R higher; equal greater trochanter PT-OP-G Mobility & Gait Start: 07/25/22 17:48 Freq: Status: Active Protocol: Document 07/26/22 10:37 [facility] (Rec: 07/26/22 11:21 [facility] [id number]) OP Gait Assessment Comments Gait Comments occ adducts LEs and dec push off; rigid upper body PT-OP-J Posture/Palpation/Skin Start: 07/25/22 17:48 Freq: Status: Active Protocol: Document 07/26/22 10:37 [facility] (Rec: 07/26/22 11:21 [facility] [id number]) Posture Evaluation Terrie Postural Classification System Terrie Postural Classifications Posterior/Posterior Vertebral Compression Test 2 Lumbar Protective Mechanism Left AP 1 Lumbar Protective Mechanism Right AP 0 Lumbar Protective Mechanism Left PA 0 Lumbar Protective Mechanism Right PA 1 Comments Posture Comments slight R SB in standing PT-OP-K Range of Motion Start: 07/25/22 17:48 Freq: Status: Active Protocol: Document 07/26/22 10:37 [facility] (Rec: 07/26/22 11:21 [facility] [id number]) Hip Goniometric Range of Motion Hip Right Active Flexion w/Knee Flexed 108 Straight Leg Raise 76 Internal Rotation 28 External Rotation 8 Left Active Flexion w/Knee Flexed 94 Straight Leg Raise 75 Internal Rotation 21 External Rotation 16 PT-OP-L Special Tests Start: 07/25/22 17:48 Freq: Status: Active Protocol: Document 07/26/22 10:37 [facility] (Rec: 07/26/22 11:21 [facility] [id number]) Special Tests Hip Special Tests Slump Test Results Dural tension L; dural & neural tension R FADDIR Test Results pos pain B JOSE DAVID Test Results pos pain B Scour Test Test Results neg B Straight Leg Raise Comments B inc tension w/DF PT-OP-M Strength Start: 07/25/22 17:48 Freq: Status: Active Protocol: Document 07/26/22 10:37 [facility] (Rec: 07/26/22 11:21 [facility] [id number]) Hip Strength Hip Manual Muscle Testing Right Flexion (L2) 4 Good Extension (S1) 4- Good- Abduction 4+ Good+ Adduction 4- Good- External Rotation 3+ Fair+ Internal Rotation 3+ Fair+ Left Flexion (L2) 3+ Fair+ Extension (S1) 4- Good- Abduction 3+ Fair+ Adduction 4+ Good+ External Rotation 4 Good Internal Rotation 4 Good Knee Strength Knee Manual Muscle Testing Right Flexion (S2) 5 Normal Extension (L3) 5 Normal Left Flexion (S2) 4 Good Extension (L3) 4 Good Ankle/Foot Strength Ankle and Foot Manual Muscle Testing Right Dorsiflexion (L4) 4+ Good+ Plantarflexion (S1) 5 Normal Left Dorsiflexion (L4) 4+ Good+ Plantarflexion (S1) 5 Normal Comments 20 heel raises B PT-OP-T Assessment and Plan Start: 07/25/22 17:48 Freq: Status: Active Protocol: Document 07/26/22 10:37 [facility] (Rec: 07/26/22 11:21 [facility] [id number]) Physical Therapy Assessment Rehab Potential Rehabilitation Potential Good Evaluation Complexity Number of Personal Factors/Comorbidities 3 or More Number of Body Systems Impaired 4 or More Clinical Presentation at Evaluation Evolving Impairments Impairments Activity Tolerance,Balance, Functional Activities, Functional Mobility,Gait,Pain, Posture,ROM,Soft Tissue Mobility,Strength Goals pain Short Term Goal (STG) 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 STG Duration 09/16/22 Mcc Goal (LTG) Pt iwll be able to walk and ride stationary bike w/o inc hip or thigh pain. LTG Duration 10/16/22 strength Short Term Goal (STG) Pt will be indep w/HEP STG Duration 09/06/22 Leadership Development Consultant Goal (LTG) Pt will score at lest 3/5 on LPM and at least 4+/5 on all LLE MMT B to improve strenth and improve pt functional ability. LTG Duration 10/16/22 sit to stands Impairment 7 sit to stands in 30 sec; 5 sit to stands in 20 sec Short Term Goal (STG) Pt will be able to do 9 sit to stands in 30 sec to show dec fall risk based on age related norms.. STG Duration 09/06/22 Leadership Development Consultant Goal (LTG) Pt will be able to do 5 sit to stands in 14 sec to show dec fall risk based on age related norms. LTG Duration 10/16/22 Assessment Summary Assessment Pt presents w/B hip and thigh pain consistant w/arthritis found in xray imaging. She has had progressive weakness and dec of funcitonal ability recently whcih really frustrates her. She is very active and exercsies daily( walking, yoga and strengthening) in order to maintain her function. She has had dec ease w/up/down from chair and has pain w/walking and standing. Seh has limited hip ROM along w/weakness of hips and core and would benefit from skilled PT to addresse these deficits. Physical Therapy Plan Frequency and Duration Frequency of Treatment 2x/Week Duration of treatment (weeks) 12 Plan of Care Start Date 07/26/22 Plan of Care End Date 10/18/22 Therapeutic Interventions Therapeutic Interventions Balance Training,Gait Training ,Home Exercise Program,Joint Mobilizations,Manual Therapy, Neuromuscular Re-education, Orthotic/Prosthetic Management ,Patient/Caregiver Education, Self-Care/Home Management,Soft Tissue Mobilization,Taping, Therapeutic Activities, Therapeutic Exercises Modalities Cold Pack/Ice Massage,Electric Stimulation,Hot Packs, Traction- Mechanical, Ultrasound Next Visit Focus/Plan Next Note Type Treatment Note Next Visit Plan review old HEP; manual to hip flexors, glutes, ITB and quads ; hip on axis flgides and inf glides
--- NOTE | 2022-07-26 14:56 | PT.OPPOC ---
Physical, Occupational & Speech Therapy At [facility] Current Diagnoses Pain in right hip (07/26/22) Pain in left hip (07/26/22) Pain in right thigh (07/26/22) Pain in left thigh (07/26/22) Difficulty in walking, not elsewhere classified (07/26/22) Abnormal posture (07/26/22) Weakness (07/26/22) Visit Care Team Role Provider Type Werner Toscano DO Attending Provider Physician Family Provider Primary Care Provider Referring Provider Specialty: Family Practice Address: [address] [place] [address], [facility] Email: [email or web address] Of Care PT-OP-T Assessment and Plan Start: 07/25/22 17:48 Freq: Status: Active Protocol: Document 07/26/22 10:37 [facility] (Rec: 07/26/22 11:21 [facility] [id number]) Physical Therapy Assessment Rehab Potential Rehabilitation Potential Good Evaluation Complexity Number of Personal Factors/Comorbidities 3 or More Number of Body Systems Impaired 4 or More Clinical Presentation at Evaluation Evolving Impairments Impairments Activity Tolerance,Balance, Functional Activities, Functional Mobility,Gait,Pain, Posture,ROM,Soft Tissue Mobility,Strength Goals pain Short Term Goal (STG) 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 STG Duration 09/16/22 Jail Goal (LTG) Pt iwll be able to walk and ride stationary bike w/o inc hip or thigh pain. LTG Duration 10/16/22 strength Short Term Goal (STG) Pt will be indep w/HEP STG Duration 09/06/22 Jail Goal (LTG) Pt will score at lest 3/5 on LPM and at least 4+/5 on all LLE MMT B to improve strenth and improve pt functional ability. LTG Duration 10/16/22 sit to stands Impairment 7 sit to stands in 30 sec; 5 sit to stands in 20 sec Short Term Goal (STG) Pt will be able to do 9 sit to stands in 30 sec to show dec fall risk based on age related norms.. STG Duration 09/06/22 Jail Goal (LTG) Pt will be able to do 5 sit to stands in 14 sec to show dec fall risk based on age related norms. LTG Duration 10/16/22 Assessment Summary Assessment Pt presents w/B hip and thigh pain consistant w/arthritis found in xray imaging. She has had progressive weakness and dec of funcitonal ability recently whcih really frustrates her. She is very active and exercsies daily( walking, yoga and strengthening) in order to maintain her function. She has had dec ease w/up/down from chair and has pain w/walking and standing. Seh has limited hip ROM along w/weakness of hips and core and would benefit from skilled PT to addresse these deficits. Physical Therapy Plan Frequency and Duration Frequency of Treatment 2x/Week Duration of treatment (weeks) 12 Plan of Care Start Date 07/26/22 Plan of Care End Date 10/18/22 Therapeutic Interventions Therapeutic Interventions Balance Training,Gait Training ,Home Exercise Program,Joint Mobilizations,Manual Therapy, Neuromuscular Re-education, Orthotic/Prosthetic Management ,Patient/Caregiver Education, Self-Care/Home Management,Soft Tissue Mobilization,Taping, Therapeutic Activities, Therapeutic Exercises Modalities Cold Pack/Ice Massage,Electric Stimulation,Hot Packs, Traction- Mechanical, Ultrasound Next Visit Focus/Plan Next Note Type Treatment Note Next Visit Plan review old HEP; manual to hip flexors, glutes, ITB and quads ; hip on axis flgides and inf glides Plan of Care Dates Plan of Care Start Date 07/26/22 Plan of Care End Date 10/18/22 Electronically Signed by: Crystal Fox, PT 07/26/22 [id number] If you are in agreement with this Plan of Care, please return a signed and dated copy. I have reviewed this Plan of Care and certify that the skilled therapy services above are required to meet the patient?s needs. Physician Signature Date Printed Name and Credentials Clinical Instructor Signature Printed Name and Credentials
--- NOTE | 2022-07-31 11:22 | PT.OTN ---
Current Diagnoses Pain in right hip (07/31/22) Pain in left hip (07/31/22) Pain in right thigh (07/31/22) Pain in left thigh (07/31/22) Difficulty in walking, not elsewhere classified (07/31/22) Abnormal posture (07/31/22) Weakness (07/31/22) Physical Therapy Treatment Note PT-OP-A Visit Information Start: 07/25/22 17:48 Freq: Status: Active Protocol: Document 07/31/22 09:08 [facility] (Rec: 07/31/22 11:21 [facility] [id number]) Out-Patient Physical Therapy Visit Information Visit Information Visit Type Treatment Note Visit Note 05/18 Visit Start Time 10:36 Visit Stop Time 11:31 Total Visit Minutes 55 Visit Number 2 Number of FITTING ROOM OPERATOR Visits 0 PT-OP-B Current Condition Start: 07/25/22 17:48 Freq: Status: Active Protocol: Document 07/26/22 10:37 [facility] (Rec: 07/26/22 11:21 [facility] [id number]) Current Condition History of Current Condition Onset Date years Current Complaints B hip and thigh pain History of Current Condition Pt reports all of sudden, she was walking and she can't walk as she used to. She has tried to do the bike at the pool as MD recomended but it gave stabbing pain in the thighs ( about 1 year ago). She has difficulty getting up from sitting. All of this has happened recently. It has gotten worse since it first started. First it was only R hip then the L hip started hurting. She did come to PT 2019 or 2020 and she got PT exercises that she still does (milagro test, figure 4, hip abd stand, hip ex stand, bridge, squat). Pt reports she doen'st go to a yoga studio anymore as she feels like it is hard to get up/down from ground so only does it at home . Pt reports a few years ago, in the AM she couldn't move her legs and saw a doc and she got meds and exercises for back. Pt walks at least 30 min and lately she has tried to do 1 hr. The up is okay but the down she feels like she has a hard time controlling the down. Pt ends up having to limp and do small steps. In the beginning it is small steps then gets more. She tries to stretch out her back and pelvis and stride to help. WHen katlyn stands longer than an hr like in kitchen it is bad pain. 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 (Rec: 07/31/22 11:21 [facility] [id number]) OP-PT Subjective Patient Comments Patient Comments Pt reports using the loom this weekend and notes pain in hips and thighs after which she took ibuprofen for PT-OP-D Balance Start: 07/25/22 17:48 Freq: Status: Active Protocol: Document 07/26/22 10:37 [facility] (Rec: 07/26/22 11:21 [facility] [id number]) Balance Tests Single Limb Standing Single Limb- Right >30 sec UEs to sides Single Limb- Left 20 sec UEs to sides PT-OP-E Functional Tests Start: 07/26/22 14:45 Freq: Status: Active Protocol: Document 07/26/22 10:37 [facility] (Rec: 07/26/22 14:49 [facility] [id number]) Functional Tests 30 Second Sit to Stand Test Score 7 Five Times Sit to Stand Test Score 20 sec PT-OP-F Manual Assessment Start: 07/25/22 17:48 Freq: Status: Active Protocol: Document 07/26/22 10:37 [facility] (Rec: 07/26/22 11:21 [facility] [id number]) Manual Assessments Soft Tissue Assessment Soft Tissue Mobility Assessment tenderness and tightness in glutes, piriformis, ITB , lat quads, iliacus B Joint Mobility Assessment Joint Mobility Assessment iliac crest height R higher; equal greater trochanter PT-OP-G Mobility & Gait Start: 07/25/22 17:48 Freq: Status: Active Protocol: Document 07/26/22 10:37 [facility] (Rec: 07/26/22 11:21 [facility] [id number]) OP Gait Assessment Comments Gait Comments occ adducts LEs and dec push off; rigid upper body PT-OP-J Posture/Palpation/Skin Start: 07/25/22 17:48 Freq: Status: Active Protocol: Document 07/26/22 10:37 [facility] (Rec: 07/26/22 11:21 [facility] [id number]) Posture Evaluation [facility] Postural Classification System Terrie Postural Classifications Posterior/Posterior Vertebral Compression Test 2 Lumbar Protective Mechanism Left AP 1 Lumbar Protective Mechanism Right AP 0 Lumbar Protective Mechanism Left PA 0 Lumbar Protective Mechanism Right PA 1 Comments Posture Comments slight R SB in standing PT-OP-K Range of Motion Start: 07/25/22 17:48 Freq: Status: Active Protocol: Document 07/26/22 10:37 [facility] (Rec: 07/26/22 11:21 [facility] [id number]) Hip Goniometric Range of Motion Hip Right Active Flexion w/Knee Flexed 108 Straight Leg Raise 76 Internal Rotation 28 External Rotation 8 Left Active Flexion w/Knee Flexed 94 Straight Leg Raise 75 Internal Rotation 21 External Rotation 16 PT-OP-L Special Tests Start: 07/25/22 17:48 Freq: Status: Active Protocol: Document 07/26/22 10:37 [facility] (Rec: 07/26/22 11:21 [facility] [id number]) Special Tests Hip Special Tests Slump Test Results Dural tension L; dural & neural tension R FADDIR Test Results pos pain B JOSE DAVID Test Results pos pain B Scour Test Test Results neg B Straight Leg Raise Comments B inc tension w/DF PT-OP-M Strength Start: 07/25/22 17:48 Freq: Status: Active Protocol: Document 07/26/22 10:37 [facility] (Rec: 07/26/22 11:21 [facility] [id number]) Hip Strength Hip Manual Muscle Testing Right Flexion (L2) 4 Good Extension (S1) 4- Good- Abduction 4+ Good+ Adduction 4- Good- External Rotation 3+ Fair+ Internal Rotation 3+ Fair+ Left Flexion (L2) 3+ Fair+ Extension (S1) 4- Good- Abduction 3+ Fair+ Adduction 4+ Good+ External Rotation 4 Good Internal Rotation 4 Good Knee Strength Knee Manual Muscle Testing Right Flexion (S2) 5 Normal Extension (L3) 5 Normal Left Flexion (S2) 4 Good Extension (L3) 4 Good Ankle/Foot Strength Ankle and Foot Manual Muscle Testing Right Dorsiflexion (L4) 4+ Good+ Plantarflexion (S1) 5 Normal Left Dorsiflexion (L4) 4+ Good+ Plantarflexion (S1) 5 Normal Comments 20 heel raises B PT-OP-Q Treatments Start: 07/25/22 17:48 Freq: Status: Active Protocol: Document 07/31/22 09:08 [facility] (Rec: 07/31/22 11:21 [facility] [id number]) Therapeutic Exercises Supine Exercises bridge Supine Exercise Name w/june Side bilateral Reps/Minutes 5 figure 4 Side bilateral Reps/Minutes 45 sec milagro test Side bilateral Reps/Minutes 30 sec x2 Standing Exercises hip ext Side bilateral Equipment Used orange band Reps/Minutes 10 Comments bent over w/bakc straight hip abd Standing Exercise Name bar Side bilateral Equipment Used range band Reps/Minutes 15 squat Standing Exercise Name over chair Side bilateral Equipment Used 4Lbl Reps/Minutes 15 Manual Therapy Treatment Soft Tissue Mobilization adductors Body Location B Mobilization Type Rolling Intensity/Depth Moderate Body Position Hooklying Comments w/hip IR/ER hip flexor Body Location B Mobilization Type Sustained Pressure Intensity/Depth Moderate Comments w/ER/IR and hip flex PROm glutes Body Location L Mobilization Type Rolling,Strumming Intensity/Depth Moderate Comments w/hip ER Joint Mobilizations hip Joint L Direction on axis ER FM & inf FM PT-OP-R Modalities Start: 07/25/22 17:48 Freq: Status: Active Protocol: Document 07/31/22 09:08 [facility] (Rec: 07/31/22 11:21 [facility] [id number]) Hot Pack/Cold Pack Treatment Hot Pack Location B hip Patient Position Hooklying Treatment Duration (minutes) 15 PT-OP-T Assessment and Plan Start: 07/25/22 17:48 Freq: Status: Active Protocol: Document 07/31/22 09:08 [facility] (Rec: 07/31/22 11:21 [facility] [id number]) Physical Therapy Assessment Goals pain Short Term Goal (STG) Pt will be able to ballast inspector kitchen as needed w/o inc hip pain or thigh pain. STG Duration 09/16/22 Director Of Employer Services Goal (LTG) Pt iwll be able to walk and ride stationary bike w/o inc hip or thigh pain. LTG Duration 10/16/22 strength Short Term Goal (STG) Pt will be indep w/HEP STG Duration 09/06/22 [facility] Goal (LTG) Pt will score at lest 3/5 on LPM and at least 4+/5 on all LLE MMT B to improve strenth and improve pt functional ability. LTG Duration 10/16/22 sit to stands Impairment 7 sit to stands in 30 sec; 5 sit to stands in 20 sec Short Term Goal (STG) Pt will be able to do 9 sit to stands in 30 sec to show dec fall risk based on age related norms.. STG Duration 09/06/22 [facility] Goal (LTG) Pt will be able to do 5 sit to stands in 14 sec to show dec fall risk based on age related norms. LTG Duration 10/16/22 Assessment Summary Assessment Pt had imrpoved hip ER & flex B w/manual treatment.She was able to do more advanced exercises and w/standing hip abd requried cues to not do a lat lean. Physical Therapy Plan Frequency and Duration Frequency of Treatment 2x/Week Duration of treatment (weeks) 12 Plan of Care Start Date 07/26/22 Plan of Care End Date 10/18/22 Next Visit Focus/Plan Next Note Type Treatment Note Next Visit Plan review exercises; manual to hip flexors, glutes, ITB and quads; hip on axis flgides and inf glides
--- NOTE | 2022-08-02 11:22 | PT.OTN ---
Current Diagnoses Pain in right hip (08/02/22) Pain in left hip (08/02/22) Pain in right thigh (08/02/22) Pain in left thigh (08/02/22) Difficulty in walking, not elsewhere classified (08/02/22) Abnormal posture (08/02/22) Weakness (08/02/22) Physical Therapy Treatment Note PT-OP-A Visit Information Start: 07/25/22 17:48 Freq: Status: Active Protocol: Document 08/02/22 10:35 [facility] (Rec: 08/02/22 11:22 [facility] [id number]) Out-Patient Physical Therapy Visit Information Visit Information Visit Type Treatment Note Visit Note 06/15 Visit Start Time 10:35 Visit Stop Time 11:25 Total Visit Minutes 50 Visit Number 3 Number of GRIT BLASTER Visits 0 PT-OP-B Current Condition Start: 07/25/22 17:48 Freq: Status: Active Protocol: Document 07/26/22 10:37 [facility] (Rec: 07/26/22 11:21 [facility] [id number]) Current Condition History of Current Condition Onset Date years Current Complaints B hip and thigh pain History of Current Condition Pt reports all of sudden, she was walking and she can't walk as she used to. She has tried to do the bike at the pool as MD recomended but it gave stabbing pain in the thighs ( about 1 year ago). She has difficulty getting up from sitting. All of this has happened recently. It has gotten worse since it first started. First it was only R hip then the L hip started hurting. She did come to PT 2019 or 2020 and she got PT exercises that she still does (milagro test, figure 4, hip abd stand, hip ex stand, bridge, squat). Pt reports she doen'st go to a yoga studio anymore as she feels like it is hard to get up/down from ground so only does it at home . Pt reports a few years ago, in the AM she couldn't move her legs and saw a doc and she got meds and exercises for back. Pt walks at least 30 min and lately she has tried to do 1 hr. The up is okay but the down she feels like she has a hard time controlling the down. Pt ends up having to limp and do small steps. In the beginning it is small steps then gets more. She tries to stretch out her back and pelvis and stride to help. WHen katlyn stands longer than an hr like in kitchen it is bad pain. Pt takes 2 advils every AM for the past week as there were a few days it was really bad so she started daily Treatment Goals Patient/Caregiver Goals Dec pain, get exercsies to help w/pain, be able to get up from chair easier,be able to enrollment management coordinator kitchen PT-OP-C Subjective Start: 07/25/22 17:48 Freq: Status: Active Protocol: Document 08/02/22 10:35 [facility] (Rec: 08/02/22 11:22 [facility] [id number]) OP-PT Subjective Patient Comments Patient Comments Pt reports she feels like the work done on her was helpful but was sore later that day. She took ibuprofen. Reports she did the exercise adjustments PT-OP-D Balance Start: 07/25/22 17:48 Freq: Status: Active Protocol: Document 07/26/22 10:37 [facility] (Rec: 07/26/22 11:21 [facility] [id number]) Balance Tests Single Limb Standing Single Limb- Right >30 sec UEs to sides Single Limb- Left 20 sec UEs to sides PT-OP-E Functional Tests Start: 07/26/22 14:45 Freq: Status: Active Protocol: Document 07/26/22 10:37 [facility] (Rec: 07/26/22 14:49 [facility] [id number]) Functional Tests 30 Second Sit to Stand Test Score 7 Five Times Sit to Stand Test Score 20 sec PT-OP-F Manual Assessment Start: 07/25/22 17:48 Freq: Status: Active Protocol: Document 07/26/22 10:37 [facility] (Rec: 07/26/22 11:21 [facility] [id number]) Manual Assessments Soft Tissue Assessment Soft Tissue Mobility Assessment tenderness and tightness in glutes, piriformis, ITB , lat quads, iliacus B Joint Mobility Assessment Joint Mobility Assessment iliac crest height R higher; equal greater trochanter PT-OP-G Mobility & Gait Start: 07/25/22 17:48 Freq: Status: Active Protocol: Document 07/26/22 10:37 [facility] (Rec: 07/26/22 11:21 [facility] [id number]) OP Gait Assessment Comments Gait Comments occ adducts LEs and dec push off; rigid upper body PT-OP-J Posture/Palpation/Skin Start: 07/25/22 17:48 Freq: Status: Active Protocol: Document 07/26/22 10:37 [facility] (Rec: 07/26/22 11:21 [facility] [id number]) Posture Evaluation [facility] Postural Classification System Terrie Postural Classifications Posterior/Posterior Vertebral Compression Test 2 Lumbar Protective Mechanism Left AP 1 Lumbar Protective Mechanism Right AP 0 Lumbar Protective Mechanism Left PA 0 Lumbar Protective Mechanism Right PA 1 Comments Posture Comments slight R SB in standing PT-OP-K Range of Motion Start: 07/25/22 17:48 Freq: Status: Active Protocol: Document 07/26/22 10:37 [facility] (Rec: 07/26/22 11:21 [facility] [id number]) Hip Goniometric Range of Motion Hip Right Active Flexion w/Knee Flexed 108 Straight Leg Raise 76 Internal Rotation 28 External Rotation 8 Left Active Flexion w/Knee Flexed 94 Straight Leg Raise 75 Internal Rotation 21 External Rotation 16 PT-OP-L Special Tests Start: 07/25/22 17:48 Freq: Status: Active Protocol: Document 07/26/22 10:37 [facility] (Rec: 07/26/22 11:21 [facility] [id number]) Special Tests Hip Special Tests Slump Test Results Dural tension L; dural & neural tension R FADDIR Test Results pos pain B JOSE DAVID Test Results pos pain B Scour Test Test Results neg B Straight Leg Raise Comments B inc tension w/DF PT-OP-M Strength Start: 07/25/22 17:48 Freq: Status: Active Protocol: Document 07/26/22 10:37 [facility] (Rec: 07/26/22 11:21 [facility] [id number]) Hip Strength Hip Manual Muscle Testing Right Flexion (L2) 4 Good Extension (S1) 4- Good- Abduction 4+ Good+ Adduction 4- Good- External Rotation 3+ Fair+ Internal Rotation 3+ Fair+ Left Flexion (L2) 3+ Fair+ Extension (S1) 4- Good- Abduction 3+ Fair+ Adduction 4+ Good+ External Rotation 4 Good Internal Rotation 4 Good Knee Strength Knee Manual Muscle Testing Right Flexion (S2) 5 Normal Extension (L3) 5 Normal Left Flexion (S2) 4 Good Extension (L3) 4 Good Ankle/Foot Strength Ankle and Foot Manual Muscle Testing Right Dorsiflexion (L4) 4+ Good+ Plantarflexion (S1) 5 Normal Left Dorsiflexion (L4) 4+ Good+ Plantarflexion (S1) 5 Normal Comments 20 heel raises B PT-OP-Q Treatments Start: 07/25/22 17:48 Freq: Status: Active Protocol: Document 08/02/22 10:35 [facility] (Rec: 08/02/22 11:22 [facility] [id number]) Manual Therapy Treatment Soft Tissue Mobilization quad Body Location R lat Mobilization Type Rolling Intensity/Depth Moderate Body Position Prone Comments w/knee flex adductors Body Location L Mobilization Type Rolling Intensity/Depth Moderate Body Position Hooklying Comments w/hip IR/ER glutes Body Location B Mobilization Type Rolling,Strumming Intensity/Depth Moderate Body Position Prone Comments w/hip ER Joint Mobilizations innominate Joint B Direction ER FM sacrum Joint caudal R & UPA R FM hip Joint L Direction on axis ER FM FM Body Position Prone Manual Traction Lumbar Body Position Supine Reps/Duration 45 sec Self-Care/Home Management Treatment Education Other Education 2 min verbal review of exercises & edu for ice for anti inflamtory to try after session PT-OP-R Modalities Start: 07/25/22 17:48 Freq: Status: Active Protocol: Document 08/02/22 10:35 [facility] (Rec: 08/02/22 11:22 [facility] [id number]) Hot Pack/Cold Pack Treatment Cold Pack Location B hips Patient Position Hooklying Treatment Duration (minutes) 10 PT-OP-T Assessment and Plan Start: 07/25/22 17:48 Freq: Status: Active Protocol: Document 08/02/22 10:35 [facility] (Rec: 08/02/22 11:22 [facility] [id number]) Physical Therapy Assessment Goals pain Short Term Goal (STG) Pt will be able to enrollment management coordinator kitchen as needed w/o inc hip pain or thigh pain. STG Duration 09/16/22 Vice President Industrial Relations Goal (LTG) Pt iwll be able to walk and ride stationary bike w/o inc hip or thigh pain. LTG Duration 10/16/22 strength Short Term Goal (STG) Pt will be indep w/HEP STG Duration 09/06/22 [facility] Goal (LTG) Pt will score at lest 3/5 on LPM and at least 4+/5 on all LLE MMT B to improve strenth and improve pt functional ability. LTG Duration 10/16/22 sit to stands Impairment 7 sit to stands in 30 sec; 5 sit to stands in 20 sec Short Term Goal (STG) Pt will be able to do 9 sit to stands in 30 sec to show dec fall risk based on age related norms.. STG Duration 09/06/22 [facility] Goal (LTG) Pt will be able to do 5 sit to stands in 14 sec to show dec fall risk based on age related norms. LTG Duration 10/16/22 Assessment Summary Assessment Pt did well iwth manual treamtent and had improved ER B but on L side more notably. pt did prolonged hold at end range w/manual traction at end ranges. She has a lot of restriction in B hip joints and innominate Physical Therapy Plan Frequency and Duration Frequency of Treatment 2x/Week Duration of treatment (weeks) 12 Plan of Care Start Date 07/26/22 Plan of Care End Date 10/18/22 Next Visit Focus/Plan Next Note Type Treatment Note Next Visit Plan review exercises; manual to hip flexors, glutes, ITB and quads; hip on axis flgides and inf glides
--- NOTE | 2022-08-07 13:24 | PT.OTN ---
Current Diagnoses Pain in right hip (08/07/22) Pain in left hip (08/07/22) Pain in right thigh (08/07/22) Pain in left thigh (08/07/22) Difficulty in walking, not elsewhere classified (08/07/22) Abnormal posture (08/07/22) Weakness (08/07/22) Physical Therapy Treatment Note PT-OP-A Visit Information Start: 07/25/22 17:48 Freq: Status: Active Protocol: Document 08/07/22 10:59 [facility] (Rec: 08/07/22 11:03 [facility] [id number]) Out-Patient Physical Therapy Visit Information Visit Information Visit Type Treatment Note Visit Note 07/16 Visit Start Time 12:17 Visit Stop Time 13:06 Total Visit Minutes 49 Visit Number 4 Number of STONE GRADER Visits 1 PT-OP-B Current Condition Start: 07/25/22 17:48 Freq: Status: Active Protocol: Document 07/26/22 10:37 [facility] (Rec: 07/26/22 11:21 [facility] [id number]) Current Condition History of Current Condition Onset Date years Current Complaints B hip and thigh pain History of Current Condition Pt reports all of sudden, she was walking and she can't walk as she used to. She has tried to do the bike at the pool as MD recomended but it gave stabbing pain in the thighs ( about 1 year ago). She has difficulty getting up from sitting. All of this has happened recently. It has gotten worse since it first started. First it was only R hip then the L hip started hurting. She did come to PT 2019 or 2020 and she got PT exercises that she still does (milagro test, figure 4, hip abd stand, hip ex stand, bridge, squat). Pt reports she doen'st go to a yoga studio anymore as she feels like it is hard to get up/down from ground so only does it at home . Pt reports a few years ago, in the AM she couldn't move her legs and saw a doc and she got meds and exercises for back. Pt walks at least 30 min and lately she has tried to do 1 hr. The up is okay but the down she feels like she has a hard time controlling the down. Pt ends up having to limp and do small steps. In the beginning it is small steps then gets more. She tries to stretch out her back and pelvis and stride to help. WHen katlyn stands longer than an hr like in kitchen it is bad pain. 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 She is doing her ex's. Cold pack felt good, and so does heat, but she noticed after last treatment she moved very slowly. PT-OP-D Balance Start: 07/25/22 17:48 Freq: Status: Active Protocol: Document 07/26/22 10:37 [facility] (Rec: 07/26/22 11:21 [facility] [id number]) Balance Tests Single Limb Standing Single Limb- Right >30 sec UEs to sides Single Limb- Left 20 sec UEs to sides PT-OP-E Functional Tests Start: 07/26/22 14:45 Freq: Status: Active Protocol: Document 07/26/22 10:37 [facility] (Rec: 07/26/22 14:49 [facility] [id number]) Functional Tests 30 Second Sit to Stand Test Score 7 Five Times Sit to Stand Test Score 20 sec PT-OP-F Manual Assessment Start: 07/25/22 17:48 Freq: Status: Active Protocol: Document 07/26/22 10:37 [facility] (Rec: 07/26/22 11:21 [facility] [id number]) Manual Assessments Soft Tissue Assessment Soft Tissue Mobility Assessment tenderness and tightness in glutes, piriformis, ITB , lat quads, iliacus B Joint Mobility Assessment Joint Mobility Assessment iliac crest height R higher; equal greater trochanter PT-OP-G Mobility & Gait Start: 07/25/22 17:48 Freq: Status: Active Protocol: Document 07/26/22 10:37 [facility] (Rec: 07/26/22 11:21 [facility] [id number]) OP Gait Assessment Comments Gait Comments occ adducts LEs and dec push off; rigid upper body PT-OP-J Posture/Palpation/Skin Start: 07/25/22 17:48 Freq: Status: Active Protocol: Document 07/26/22 10:37 [facility] (Rec: 07/26/22 11:21 [facility] [id number]) Posture Evaluation [facility] Postural Classification System [facility] Postural Classifications Posterior/Posterior Vertebral Compression Test 2 Lumbar Protective Mechanism Left AP 1 Lumbar Protective Mechanism Right AP 0 Lumbar Protective Mechanism Left PA 0 Lumbar Protective Mechanism Right PA 1 Comments Posture Comments slight R SB in standing PT-OP-K Range of Motion Start: 07/25/22 17:48 Freq: Status: Active Protocol: Document 07/26/22 10:37 [facility] (Rec: 07/26/22 11:21 [facility] [id number]) Hip Goniometric Range of Motion Hip Right Active Flexion w/Knee Flexed 108 Straight Leg Raise 76 Internal Rotation 28 External Rotation 8 Left Active Flexion w/Knee Flexed 94 Straight Leg Raise 75 Internal Rotation 21 External Rotation 16 PT-OP-L Special Tests Start: 07/25/22 17:48 Freq: Status: Active Protocol: Document 07/26/22 10:37 [facility] (Rec: 07/26/22 11:21 [facility] [id number]) Special Tests Hip Special Tests Slump Test Results Dural tension L; dural & neural tension R FADDIR Test Results pos pain B JOSE DAVID Test Results pos pain B Scour Test Test Results neg B Straight Leg Raise Comments B inc tension w/DF PT-OP-M Strength Start: 07/25/22 17:48 Freq: Status: Active Protocol: Document 07/26/22 10:37 [facility] (Rec: 07/26/22 11:21 [facility] [id number]) Hip Strength Hip Manual Muscle Testing Right Flexion (L2) 4 Good Extension (S1) 4- Good- Abduction 4+ Good+ Adduction 4- Good- External Rotation 3+ Fair+ Internal Rotation 3+ Fair+ Left Flexion (L2) 3+ Fair+ Extension (S1) 4- Good- Abduction 3+ Fair+ Adduction 4+ Good+ External Rotation 4 Good Internal Rotation 4 Good Knee Strength Knee Manual Muscle Testing Right Flexion (S2) 5 Normal Extension (L3) 5 Normal Left Flexion (S2) 4 Good Extension (L3) 4 Good Ankle/Foot Strength Ankle and Foot Manual Muscle Testing Right Dorsiflexion (L4) 4+ Good+ Plantarflexion (S1) 5 Normal Left Dorsiflexion (L4) 4+ Good+ Plantarflexion (S1) 5 Normal Comments 20 heel raises B PT-OP-Q Treatments Start: 07/25/22 17:48 Freq: Status: Active Protocol: Document 08/07/22 10:59 [facility] (Rec: 08/07/22 11:03 [facility] [id number]) Therapeutic Exercises Supine Exercises bridge Supine Exercise Name w/march Side bilateral Reps/Minutes 2x5 Comments cues for max height, breathwork, slower pacing figure 4 Side bilateral Reps/Minutes 60s ea milagro test Side bilateral Equipment Used hi-low table Reps/Minutes 30 sec x2 Comments cues to hug knee then lower other side for stretch Sitting Exercises hamstring stretch Side bilateral Equipment Used mesh chair Reps/Minutes 30s ea/~5 breath cycles Comments cues for form, no breathholding Standing Exercises hip ext Side bilateral Equipment Used orange band Reps/Minutes 10 Comments cues for no lumbar hyperextension, toes fwd, hip width, DF hip abd Standing Exercise Name bar Side bilateral Resistance orange band, handrail Reps/Minutes 2x10 ea Comments cues for straight knee, toes fwd, eccentric control squat Standing Exercise Name over chair Side bilateral Resistance 4Lb (two 2# dumbbells) Reps/Minutes 2x5 Comments cues for hip hinge, knees behind toes, glute squeeze at top Self-Care/Home Management Treatment Education Patient Education Home Exercise Program Other Education HEP review with cues for form and breathwork. Pt's HEP handout is updated w/ cues accordingly (see Notes section ). PT-OP-R Modalities Start: 07/25/22 17:48 Freq: Status: Active Protocol: Document 08/07/22 10:59 [facility] (Rec: 08/07/22 11:03 [facility] [id number]) Hot Pack/Cold Pack Treatment Cold Pack Location B hips Patient Position Hooklying Treatment Duration (minutes) 10 Patient Tolerance Good Comments w/ strap and bolster under LEs . 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 STG Duration 09/16/22 Senior Living Goal (LTG) Pt iwll be able to walk and ride stationary bike w/o inc hip or thigh pain. LTG Duration 10/16/22 strength Short Term Goal (STG) Pt will be indep w/HEP STG Duration 09/06/22 Senior Living Goal (LTG) Pt will score at lest 3/5 on LPM and at least 4+/5 on all LLE MMT B to improve strenth and improve pt functional ability. LTG Duration 10/16/22 sit to stands Impairment 7 sit to stands in 30 sec; 5 sit to stands in 20 sec Short Term Goal (STG) Pt will be able to do 9 sit to stands in 30 sec to show dec fall risk based on age related norms.. STG Duration 09/06/22 Birth Certificate Clerk Goal (LTG) Pt will be able to do 5 sit to stands in 14 sec to show dec fall risk based on age related norms. LTG Duration 10/16/22 Assessment Summary Assessment Treatment focus on HEP review. Zenaida requires cues to maintain stretches in pain- free range. Pt tends to hold breath with therapeutic exercises and self-awareness improves with cueing and repetition. She requires cues for slower eccentric pacing with supine marches and resisted two -way hip ex's. She is able to perform HEP with improved form after cues and practice this session and has positive feedback response for hip muscles working without increase in baseline pain. Pt's HEP handout is updated w/ cues accordingly ( see Notes section). Physical Therapy Plan Frequency and Duration Frequency of Treatment 2x/Week Duration of treatment (weeks) 12 Plan of Care Start Date 07/26/22 Plan of Care End Date 10/18/22 Therapeutic Interventions Therapeutic Interventions Balance Training,Gait Training ,Home Exercise Program,Joint Mobilizations,Manual Therapy, Neuromuscular Re-education, Orthotic/Prosthetic Management ,Patient/Caregiver Education, Self-Care/Home Management,Soft Tissue Mobilization,Taping, Therapeutic Activities, Therapeutic Exercises Modalities Cold Pack/Ice Massage,Electric Stimulation,Hot Packs, Traction- Mechanical, Ultrasound Next Visit Focus/Plan Next Note Type Treatment Note Next Visit Plan consider adding seated HS stretch to HEP. Progress POC. POC: review exercises; manual to hip flexors, glutes, ITB and quads; hip on axis flgides and inf glides
--- NOTE | 2022-08-09 15:39 | PT.OTN ---
Current Diagnoses Pain in right hip (08/09/22) Pain in left hip (08/09/22) Pain in right thigh (08/09/22) Pain in left thigh (08/09/22) Difficulty in walking, not elsewhere classified (08/09/22) Abnormal posture (08/09/22) Weakness (08/09/22) Physical Therapy Treatment Note PT-OP-A Visit Information Start: 07/25/22 17:48 Freq: Status: Active Protocol: Document 08/09/22 10:03 [facility] (Rec: 08/09/22 10:52 [facility] [id number]) Out-Patient Physical Therapy Visit Information Visit Information Visit Type Treatment Note Visit Note 08/15 Visit Start Time 10:03 Visit Stop Time 10:45 Total Visit Minutes 42 Visit Number 5 Number of OFFICE HELPER CLERICAL Visits 0 PT-OP-B Current Condition Start: 07/25/22 17:48 Freq: Status: Active Protocol: Document 07/26/22 10:37 [facility] (Rec: 07/26/22 11:21 [facility] [id number]) Current Condition History of Current Condition Onset Date years Current Complaints B hip and thigh pain History of Current Condition Pt reports all of sudden, she was walking and she can't walk as she used to. She has tried to do the bike at the pool as MD recomended but it gave stabbing pain in the thighs ( about 1 year ago). She has difficulty getting up from sitting. All of this has happened recently. It has gotten worse since it first started. First it was only R hip then the L hip started hurting. She did come to PT 2019 or 2020 and she got PT exercises that she still does (milagro test, figure 4, hip abd stand, hip ex stand, bridge, squat). Pt reports she doen'st go to a yoga studio anymore as she feels like it is hard to get up/down from ground so only does it at home . Pt reports a few years ago, in the AM she couldn't move her legs and saw a doc and she got meds and exercises for back. Pt walks at least 30 min and lately she has tried to do 1 hr. The up is okay but the down she feels like she has a hard time controlling the down. Pt ends up having to limp and do small steps. In the beginning it is small steps then gets more. She tries to stretch out her back and pelvis and stride to help. WHen katlyn stands longer than an hr like in kitchen it is bad pain. Pt takes 2 advils every AM for the past week as there were a few days it was really bad so she started daily Treatment Goals Patient/Caregiver Goals Dec pain, get exercsies to help w/pain, be able to get up from chair easier,be able to case management coordinator kitchen PT-OP-C Subjective Start: 07/25/22 17:48 Freq: Status: Active Protocol: Document 08/09/22 10:03 [facility] (Rec: 08/09/22 10:52 [facility] [id number]) OP-PT Subjective Patient Comments Patient Comments Pt reports she is sore after walking more today w/the dogs. SHe felt the manual work loosened her PT-OP-D Balance Start: 07/25/22 17:48 Freq: Status: Active Protocol: Document 07/26/22 10:37 [facility] (Rec: 07/26/22 11:21 [facility] [id number]) Balance Tests Single Limb Standing Single Limb- Right >30 sec UEs to sides Single Limb- Left 20 sec UEs to sides PT-OP-E Functional Tests Start: 07/26/22 14:45 Freq: Status: Active Protocol: Document 07/26/22 10:37 [facility] (Rec: 07/26/22 14:49 [facility] [id number]) Functional Tests 30 Second Sit to Stand Test Score 7 Five Times Sit to Stand Test Score 20 sec PT-OP-F Manual Assessment Start: 07/25/22 17:48 Freq: Status: Active Protocol: Document 07/26/22 10:37 [facility] (Rec: 07/26/22 11:21 [facility] [id number]) Manual Assessments Soft Tissue Assessment Soft Tissue Mobility Assessment tenderness and tightness in glutes, piriformis, ITB , lat quads, iliacus B Joint Mobility Assessment Joint Mobility Assessment iliac crest height R higher; equal greater trochanter PT-OP-G Mobility & Gait Start: 07/25/22 17:48 Freq: Status: Active Protocol: Document 07/26/22 10:37 [facility] (Rec: 07/26/22 11:21 [facility] [id number]) OP Gait Assessment Comments Gait Comments occ adducts LEs and dec push off; rigid upper body PT-OP-J Posture/Palpation/Skin Start: 07/25/22 17:48 Freq: Status: Active Protocol: Document 07/26/22 10:37 [facility] (Rec: 07/26/22 11:21 [facility] [id number]) Posture Evaluation [facility] Postural Classification System [place] Postural Classifications Posterior/Posterior Vertebral Compression Test 2 Lumbar Protective Mechanism Left AP 1 Lumbar Protective Mechanism Right AP 0 Lumbar Protective Mechanism Left PA 0 Lumbar Protective Mechanism Right PA 1 Comments Posture Comments slight R SB in standing PT-OP-K Range of Motion Start: 07/25/22 17:48 Freq: Status: Active Protocol: Document 07/26/22 10:37 [facility] (Rec: 07/26/22 11:21 [facility] [id number]) Hip Goniometric Range of Motion Hip Right Active Flexion w/Knee Flexed 108 Straight Leg Raise 76 Internal Rotation 28 External Rotation 8 Left Active Flexion w/Knee Flexed 94 Straight Leg Raise 75 Internal Rotation 21 External Rotation 16 PT-OP-L Special Tests Start: 07/25/22 17:48 Freq: Status: Active Protocol: Document 07/26/22 10:37 [facility] (Rec: 07/26/22 11:21 [facility] [id number]) Special Tests Hip Special Tests Slump Test Results Dural tension L; dural & neural tension R FADDIR Test Results pos pain B JOSE DAVID Test Results pos pain B Scour Test Test Results neg B Straight Leg Raise Comments B inc tension w/DF PT-OP-M Strength Start: 07/25/22 17:48 Freq: Status: Active Protocol: Document 07/26/22 10:37 [facility] (Rec: 07/26/22 11:21 [facility] [id number]) Hip Strength Hip Manual Muscle Testing Right Flexion (L2) 4 Good Extension (S1) 4- Good- Abduction 4+ Good+ Adduction 4- Good- External Rotation 3+ Fair+ Internal Rotation 3+ Fair+ Left Flexion (L2) 3+ Fair+ Extension (S1) 4- Good- Abduction 3+ Fair+ Adduction 4+ Good+ External Rotation 4 Good Internal Rotation 4 Good Knee Strength Knee Manual Muscle Testing Right Flexion (S2) 5 Normal Extension (L3) 5 Normal Left Flexion (S2) 4 Good Extension (L3) 4 Good Ankle/Foot Strength Ankle and Foot Manual Muscle Testing Right Dorsiflexion (L4) 4+ Good+ Plantarflexion (S1) 5 Normal Left Dorsiflexion (L4) 4+ Good+ Plantarflexion (S1) 5 Normal Comments 20 heel raises B PT-OP-Q Treatments Start: 07/25/22 17:48 Freq: Status: Active Protocol: Document 08/09/22 10:03 [facility] (Rec: 08/09/22 10:52 [facility] [id number]) Therapeutic Exercises Supine Exercises bridge Supine Exercise Name w/june Side bilateral Reps/Minutes 8 Comments cues for mainitaining pelvis netural Therapeutic Activity Therapeutic Activity sleep position Comments 10 min: working on s/l sleep position. edu on why she should prop w/pillows and towels. Discussed how to support entire leg and how to support w/towel under side. edu re: why; used MARCO technique to show the difference. Manual Therapy Treatment Soft Tissue Mobilization hip flexor Body Location L Mobilization Type Sustained Pressure Intensity/Depth Moderate Comments w/ER/IR and hip flex PROm glutes Body Location L lat Mobilization Type Rolling,Strumming Intensity/Depth Moderate Body Position Hooklying Comments w/hip ER Joint Mobilizations hip Joint L inf FM PT-OP-R Modalities Start: 07/25/22 17:48 Freq: Status: Active Protocol: Document 08/07/22 10:59 [facility] (Rec: 08/07/22 11:03 [facility] [id number]) Hot Pack/Cold Pack Treatment Cold Pack Location B hips Patient Position Hooklying Treatment Duration (minutes) 10 Patient Tolerance Good Comments w/ strap and bolster under LEs . PT-OP-T Assessment and Plan Start: 07/25/22 17:48 Freq: Status: Active Protocol: Document 08/09/22 10:03 [facility] (Rec: 08/09/22 10:52 [facility] [id number]) Physical Therapy Assessment Goals pain Short Term Goal (STG) Pt will be able to case management coordinator kitchen as needed w/o inc hip pain or thigh pain. STG Duration 09/16/22 Alf Goal (LTG) Pt iwll be able to walk and ride stationary bike w/o inc hip or thigh pain. LTG Duration 10/16/22 strength Short Term Goal (STG) Pt will be indep w/HEP STG Duration 09/06/22 Alf Goal (LTG) Pt will score at lest 3/5 on LPM and at least 4+/5 on all LLE MMT B to improve strenth and improve pt functional ability. LTG Duration 10/16/22 sit to stands Impairment 7 sit to stands in 30 sec; 5 sit to stands in 20 sec Short Term Goal (STG) Pt will be able to do 9 sit to stands in 30 sec to show dec fall risk based on age related norms.. STG Duration 09/06/22 Alf Goal (LTG) Pt will be able to do 5 sit to stands in 14 sec to show dec fall risk based on age related norms. LTG Duration 10/16/22 Assessment Summary Assessment Pt presented today w/much improved flex R>L w/less discomfort. L improved further w/manual but does still have impingment pain w/full ROM flex. She did well with bridge after cueing. Very receptive to sleep positiong edu. Physical Therapy Plan Frequency and Duration Frequency of Treatment 2x/Week Duration of treatment (weeks) 12 Plan of Care Start Date 07/26/22 Plan of Care End Date 10/18/22 Next Visit Focus/Plan Next Note Type Treatment Note Next Visit Plan review exercisesprn; manual to hip flexors, glutes, ITB and quads; hip on axis flgides and inf glides
--- NOTE | 2022-08-14 11:16 | PT.OTN ---
Current Diagnoses Pain in right hip (08/14/22) Pain in left hip (08/14/22) Pain in right thigh (08/14/22) Pain in left thigh (08/14/22) Difficulty in walking, not elsewhere classified (08/14/22) Abnormal posture (08/14/22) Weakness (08/14/22) Physical Therapy Treatment Note PT-OP-A Visit Information Start: 07/25/22 17:48 Freq: Status: Active Protocol: Document 08/14/22 07:30 [facility] (Rec: 08/14/22 11:16 [facility] [id number]) Out-Patient Physical Therapy Visit Information Visit Information Visit Type Treatment Note Visit Note 09/15 Visit Start Time 09:05 Visit Stop Time 09:45 Total Visit Minutes 40 Visit Number 6 Number of SENIOR EDITOR Visits 0 PT-OP-B Current Condition Start: 07/25/22 17:48 Freq: Status: Active Protocol: Document 07/26/22 10:37 [facility] (Rec: 07/26/22 11:21 [facility] [id number]) Current Condition History of Current Condition Onset Date years Current Complaints B hip and thigh pain History of Current Condition Pt reports all of sudden, she was walking and she can't walk as she used to. She has tried to do the bike at the pool as MD recomended but it gave stabbing pain in the thighs ( about 1 year ago). She has difficulty getting up from sitting. All of this has happened recently. It has gotten worse since it first started. First it was only R hip then the L hip started hurting. She did come to PT 2019 or 2020 and she got PT exercises that she still does (milagro test, figure 4, hip abd stand, hip ex stand, bridge, squat). Pt reports she doen'st go to a yoga studio anymore as she feels like it is hard to get up/down from ground so only does it at home . Pt reports a few years ago, in the AM she couldn't move her legs and saw a doc and she got meds and exercises for back. Pt walks at least 30 min and lately she has tried to do 1 hr. The up is okay but the down she feels like she has a hard time controlling the down. Pt ends up having to limp and do small steps. In the beginning it is small steps then gets more. She tries to stretch out her back and pelvis and stride to help. WHen seh stands longer than an hr like in kitchen it is bad pain. Pt takes 2 advils every AM for the past week as there were a few days it was really bad so she started daily Treatment Goals Patient/Caregiver Goals Dec pain, get exercsies to help w/pain, be able to get up from chair easier,be able to heel finisher kitchen PT-OP-C Subjective Start: 07/25/22 17:48 Freq: Status: Active Protocol: Document 08/14/22 07:30 [facility] (Rec: 08/14/22 11:16 [facility] [id number]) OP-PT Subjective Patient Comments Patient Comments pt reports her L hip is sore today w/all the walking she is doing with the dogs in general. he is getting sharp pains in lat hip during walking on L side occ. PT-OP-D Balance Start: 07/25/22 17:48 Freq: Status: Active Protocol: Document 07/26/22 10:37 [facility] (Rec: 07/26/22 11:21 [facility] [id number]) Balance Tests Single Limb Standing Single Limb- Right >30 sec UEs to sides Single Limb- Left 20 sec UEs to sides PT-OP-E Functional Tests Start: 07/26/22 14:45 Freq: Status: Active Protocol: Document 07/26/22 10:37 [facility] (Rec: 07/26/22 14:49 [facility] [id number]) Functional Tests 30 Second Sit to Stand Test Score 7 Five Times Sit to Stand Test Score 20 sec PT-OP-F Manual Assessment Start: 07/25/22 17:48 Freq: Status: Active Protocol: Document 07/26/22 10:37 [facility] (Rec: 07/26/22 11:21 [facility] [id number]) Manual Assessments Soft Tissue Assessment Soft Tissue Mobility Assessment tenderness and tightness in glutes, piriformis, ITB , lat quads, iliacus B Joint Mobility Assessment Joint Mobility Assessment iliac crest height R higher; equal greater trochanter PT-OP-G Mobility & Gait Start: 07/25/22 17:48 Freq: Status: Active Protocol: Document 07/26/22 10:37 [facility] (Rec: 07/26/22 11:21 [facility] [id number]) OP Gait Assessment Comments Gait Comments occ adducts LEs and dec push off; rigid upper body PT-OP-J Posture/Palpation/Skin Start: 07/25/22 17:48 Freq: Status: Active Protocol: Document 07/26/22 10:37 [facility] (Rec: 07/26/22 11:21 [facility] [id number]) Posture Evaluation [facility] Postural Classification System [facility] Postural Classifications Posterior/Posterior Vertebral Compression Test 2 Lumbar Protective Mechanism Left AP 1 Lumbar Protective Mechanism Right AP 0 Lumbar Protective Mechanism Left PA 0 Lumbar Protective Mechanism Right PA 1 Comments Posture Comments slight R SB in standing PT-OP-K Range of Motion Start: 07/25/22 17:48 Freq: Status: Active Protocol: Document 07/26/22 10:37 [facility] (Rec: 07/26/22 11:21 [facility] [id number]) Hip Goniometric Range of Motion Hip Right Active Flexion w/Knee Flexed 108 Straight Leg Raise 76 Internal Rotation 28 External Rotation 8 Left Active Flexion w/Knee Flexed 94 Straight Leg Raise 75 Internal Rotation 21 External Rotation 16 PT-OP-L Special Tests Start: 07/25/22 17:48 Freq: Status: Active Protocol: Document 07/26/22 10:37 [facility] (Rec: 07/26/22 11:21 [facility] [id number]) Special Tests Hip Special Tests Slump Test Results Dural tension L; dural & neural tension R FADDIR Test Results pos pain B JOSE DAVID Test Results pos pain B Scour Test Test Results neg B Straight Leg Raise Comments B inc tension w/DF PT-OP-M Strength Start: 07/25/22 17:48 Freq: Status: Active Protocol: Document 07/26/22 10:37 [facility] (Rec: 07/26/22 11:21 [facility] [id number]) Hip Strength Hip Manual Muscle Testing Right Flexion (L2) 4 Good Extension (S1) 4- Good- Abduction 4+ Good+ Adduction 4- Good- External Rotation 3+ Fair+ Internal Rotation 3+ Fair+ Left Flexion (L2) 3+ Fair+ Extension (S1) 4- Good- Abduction 3+ Fair+ Adduction 4+ Good+ External Rotation 4 Good Internal Rotation 4 Good Knee Strength Knee Manual Muscle Testing Right Flexion (S2) 5 Normal Extension (L3) 5 Normal Left Flexion (S2) 4 Good Extension (L3) 4 Good Ankle/Foot Strength Ankle and Foot Manual Muscle Testing Right Dorsiflexion (L4) 4+ Good+ Plantarflexion (S1) 5 Normal Left Dorsiflexion (L4) 4+ Good+ Plantarflexion (S1) 5 Normal Comments 20 heel raises B PT-OP-Q Treatments Start: 07/25/22 17:48 Freq: Status: Active Protocol: Document 08/14/22 07:30 [facility] (Rec: 08/14/22 11:16 [facility] [id number]) Therapeutic Exercises Standing Exercises wt shifts Standing Exercise Name wt shift into LE progressed to SLS w/alt march Side bilateral Equipment Used mirror and opp hand holding counter Reps/Minutes 10 ea Comments focus on no lean and full wt shift gait at wall Side bilateral Reps/Minutes 10sec x3 B Comments inc time for set up Manual Therapy Treatment Soft Tissue Mobilization back Body Location L paraspinals, QL Mobilization Type Rolling,Strumming Intensity/Depth Moderate Body Position Sidelying Comments w/c/r post elevation Joint Mobilizations lumbar Comments gapping L1-2; L2-3 FM Neuro Re-Education Treatment Other Activities PNF Details L Reps/Duration 22 min Comments 1. post elevation eccentric lowering and COI to inc Ant dep length progressed to sustained holds into ant dep and COI 2. post depression sustained holds after irradiation from LE traction progressed to post dep sustained holds w/LE pattern w/COI into flex then into ER PT-OP-R Modalities Start: 07/25/22 17:48 Freq: Status: Active Protocol: Document 08/07/22 10:59 [facility] (Rec: 08/07/22 11:03 [facility] [id number]) Hot Pack/Cold Pack Treatment Cold Pack Location B hips Patient Position Hooklying Treatment Duration (minutes) 10 Patient Tolerance Good Comments w/ strap and bolster under LEs . PT-OP-T Assessment and Plan Start: 07/25/22 17:48 Freq: Status: Active Protocol: Document 08/14/22 07:30 [facility] (Rec: 08/14/22 11:16 [facility] [id number]) Physical Therapy Assessment Goals pain Short Term Goal (STG) Pt will be able to heel finisher kitchen as needed w/o inc hip pain or thigh pain. STG Duration 09/16/22 Snf Goal (LTG) Pt iwll be able to walk and ride stationary bike w/o inc hip or thigh pain. LTG Duration 10/16/22 strength Short Term Goal (STG) Pt will be indep w/HEP STG Duration 09/06/22 Snf Goal (LTG) Pt will score at lest 3/5 on LPM and at least 4+/5 on all LLE MMT B to improve strenth and improve pt functional ability. LTG Duration 10/16/22 sit to stands Impairment 7 sit to stands in 30 sec; 5 sit to stands in 20 sec Short Term Goal (STG) Pt will be able to do 9 sit to stands in 30 sec to show dec fall risk based on age related norms.. STG Duration 09/06/22 Cd Mixer Goal (LTG) Pt will be able to do 5 sit to stands in 14 sec to show dec fall risk based on age related norms. LTG Duration 10/16/22 Assessment Summary Assessment Pt had much improved pelvis motion after manual. She walked in w/dec stance tiem on LLE and obvious limp w/L hip pain whichw as reduced after PNF work. Improved gait pattern w/PNF work. Physical Therapy Plan Frequency and Duration Frequency of Treatment 2x/Week Duration of treatment (weeks) 12 Plan of Care Start Date 07/26/22 Plan of Care End Date 10/18/22 Next Visit Focus/Plan Next Note Type Treatment Note Next Visit Plan review wt shifts to june, gait at wall (make sure knee ext occuring), bridge w/june, Try lunging; manual to LE soft tissues and hip and pelvis joints to improve mobility; PNF for improved stability.
--- NOTE | 2022-08-16 12:45 | PT.OTN ---
Current Diagnoses Pain in right hip (08/16/22) Pain in left hip (08/16/22) Pain in right thigh (08/16/22) Pain in left thigh (08/16/22) Difficulty in walking, not elsewhere classified (08/16/22) Abnormal posture (08/16/22) Weakness (08/16/22) Physical Therapy Treatment Note PT-OP-A Visit Information Start: 07/25/22 17:48 Freq: Status: Active Protocol: Document 08/16/22 11:59 SP (Rec: 08/16/22 12:48 SP [id number]) Out-Patient Physical Therapy Visit Information Visit Information Visit Type Treatment Note Visit Note 10/15 Visit Start Time 12:00 Visit Stop Time 12:45 Total Visit Minutes 45 Visit Number 7 Number of WIRE INSULATOR Visits 1 PT-OP-B Current Condition Start: 07/25/22 17:48 Freq: Status: Active Protocol: Document 07/26/22 10:37 [facility] (Rec: 07/26/22 11:21 [facility] [id number]) Current Condition History of Current Condition Onset Date years Current Complaints B hip and thigh pain History of Current Condition Pt reports all of sudden, she was walking and she can't walk as she used to. She has tried to do the bike at the pool as MD recomended but it gave stabbing pain in the thighs ( about 1 year ago). She has difficulty getting up from sitting. All of this has happened recently. It has gotten worse since it first started. First it was only R hip then the L hip started hurting. She did come to PT 2019 or 2020 and she got PT exercises that she still does (milagro test, figure 4, hip abd stand, hip ex stand, bridge, squat). Pt reports she doen'st go to a yoga studio anymore as she feels like it is hard to get up/down from ground so only does it at home . Pt reports a few years ago, in the AM she couldn't move her legs and saw a doc and she got meds and exercises for back. Pt walks at least 30 min and lately she has tried to do 1 hr. The up is okay but the down she feels like she has a hard time controlling the down. Pt ends up having to limp and do small steps. In the beginning it is small steps then gets more. She tries to stretch out her back and pelvis and stride to help. WHen katlyn stands longer than an hr like in kitchen it is bad pain. Pt takes 2 advils every AM for the past week as there were a few days it was really bad so she started daily Treatment Goals Patient/Caregiver Goals Dec pain, get exercsies to help w/pain, be able to get up from chair easier,be able to blueprint reproducer kitchen PT-OP-C Subjective Start: 07/25/22 17:48 Freq: Status: Active Protocol: Document 08/16/22 11:59 [facility] (Rec: 08/16/22 12:48 [facility] [id number]) OP-PT Subjective Patient Comments Patient Comments Pt reports her hips were little sore after last tx manual and exercises but feel has been helpful for walking her daughter's dogs. Her quads are little tired from walking dogs too. Her daughter comes back tonight so can focuse more on self and not added activity with dogs. She demonstrates R hip abd weakness/decrease stance time. PT-OP-D Balance Start: 07/25/22 17:48 Freq: Status: Active Protocol: Document 07/26/22 10:37 [facility] (Rec: 07/26/22 11:21 [facility] [id number]) Balance Tests Single Limb Standing Single Limb- Right >30 sec UEs to sides Single Limb- Left 20 sec UEs to sides PT-OP-E Functional Tests Start: 07/26/22 14:45 Freq: Status: Active Protocol: Document 07/26/22 10:37 [facility] (Rec: 07/26/22 14:49 [facility] [id number]) Functional Tests 30 Second Sit to Stand Test Score 7 Five Times Sit to Stand Test Score 20 sec PT-OP-F Manual Assessment Start: 07/25/22 17:48 Freq: Status: Active Protocol: Document 07/26/22 10:37 [facility] (Rec: 07/26/22 11:21 [facility] [id number]) Manual Assessments Soft Tissue Assessment Soft Tissue Mobility Assessment tenderness and tightness in glutes, piriformis, ITB , lat quads, iliacus B Joint Mobility Assessment Joint Mobility Assessment iliac crest height R higher; equal greater trochanter PT-OP-G Mobility & Gait Start: 07/25/22 17:48 Freq: Status: Active Protocol: Document 07/26/22 10:37 [facility] (Rec: 07/26/22 11:21 [facility] [id number]) OP Gait Assessment Comments Gait Comments occ adducts LEs and dec push off; rigid upper body PT-OP-J Posture/Palpation/Skin Start: 07/25/22 17:48 Freq: Status: Active Protocol: Document 07/26/22 10:37 [facility] (Rec: 07/26/22 11:21 [facility] [id number]) Posture Evaluation [facility] Postural Classification System [facility] Postural Classifications Posterior/Posterior Vertebral Compression Test 2 Lumbar Protective Mechanism Left AP 1 Lumbar Protective Mechanism Right AP 0 Lumbar Protective Mechanism Left PA 0 Lumbar Protective Mechanism Right PA 1 Comments Posture Comments slight R SB in standing PT-OP-K Range of Motion Start: 07/25/22 17:48 Freq: Status: Active Protocol: Document 07/26/22 10:37 [facility] (Rec: 07/26/22 11:21 [facility] [id number]) Hip Goniometric Range of Motion Hip Right Active Flexion w/Knee Flexed 108 Straight Leg Raise 76 Internal Rotation 28 External Rotation 8 Left Active Flexion w/Knee Flexed 94 Straight Leg Raise 75 Internal Rotation 21 External Rotation 16 PT-OP-L Special Tests Start: 07/25/22 17:48 Freq: Status: Active Protocol: Document 07/26/22 10:37 [facility] (Rec: 07/26/22 11:21 [facility] [id number]) Special Tests Hip Special Tests Slump Test Results Dural tension L; dural & neural tension R FADDIR Test Results pos pain B JOSE DAVID Test Results pos pain B Scour Test Test Results neg B Straight Leg Raise Comments B inc tension w/DF PT-OP-M Strength Start: 07/25/22 17:48 Freq: Status: Active Protocol: Document 07/26/22 10:37 [facility] (Rec: 07/26/22 11:21 [facility] [id number]) Hip Strength Hip Manual Muscle Testing Right Flexion (L2) 4 Good Extension (S1) 4- Good- Abduction 4+ Good+ Adduction 4- Good- External Rotation 3+ Fair+ Internal Rotation 3+ Fair+ Left Flexion (L2) 3+ Fair+ Extension (S1) 4- Good- Abduction 3+ Fair+ Adduction 4+ Good+ External Rotation 4 Good Internal Rotation 4 Good Knee Strength Knee Manual Muscle Testing Right Flexion (S2) 5 Normal Extension (L3) 5 Normal Left Flexion (S2) 4 Good Extension (L3) 4 Good Ankle/Foot Strength Ankle and Foot Manual Muscle Testing Right Dorsiflexion (L4) 4+ Good+ Plantarflexion (S1) 5 Normal Left Dorsiflexion (L4) 4+ Good+ Plantarflexion (S1) 5 Normal Comments 20 heel raises B PT-OP-Q Treatments Start: 07/25/22 17:48 Freq: Status: Active Protocol: Document 08/16/22 11:59 SP (Rec: 08/16/22 12:48 SP [id number]) Therapeutic Exercises Supine Exercises bridge Supine Exercise Name w/march Side bilateral Reps/Minutes 8x2- improved with cues slowpacing Comments cues for slow stepping maintaining TA and level pelvis neutral milagro test Supine Exercise Name good anterior hip stretch Side bilateral Equipment Used hi-low table Reps/Minutes 30 sec x2 Comments good form hug knee then lower other side for stretch Standing Exercises step ups Standing Exercise Name initiated- repeated step up Side bilateral Reps/Minutes x8 reps before tired and used momentum Comments cued heel press glut drive- improved eachLE- less momentum wt shifts Standing Exercise Name wt shift into LE progressed to SLS w/alt march Side bilateral Equipment Used mirror and opp hand holding counter Reps/Minutes 10 ea Comments focus on no lean and full wt shift gait at wall Side bilateral Reps/Minutes 40 ft x3 laps Comments cued tall, glut fac push, little wider BELL Other Exercises self STMs Other Exercise Name rolling pin: quad, ITB, HS, calf, racquetball: glut/pirif/ ES Comments good feedback massage to sore/ tight muscels Manual Therapy Treatment Soft Tissue Mobilization quad Body Location R lat hip flexor Body Location L Mobilization Type Sustained Pressure Intensity/Depth Moderate Comments w/ER/IR and hip flex PROm glutes Body Location L medius, max Mobilization Type Rolling,Strumming Intensity/Depth Moderate Body Position Hooklying Comments w/hip ER, depression, PNF against resistance PT-OP-R Modalities Start: 07/25/22 17:48 Freq: Status: Active Protocol: Document 08/07/22 10:59 [facility] (Rec: 08/07/22 11:03 [facility] [id number]) Hot Pack/Cold Pack Treatment Cold Pack Location B hips Patient Position Hooklying Treatment Duration (minutes) 10 Patient Tolerance Good Comments w/ strap and bolster under LEs . PT-OP-T Assessment and Plan Start: 07/25/22 17:48 Freq: Status: Active Protocol: Document 08/16/22 11:59 SP (Rec: 08/16/22 12:48 SP [id number]) Physical Therapy Assessment Goals pain Short Term Goal (STG) Pt will be able to blueprint reproducer kitchen as needed w/o inc hip pain or thigh pain. STG Duration 09/16/22 Alf Goal (LTG) Pt iwll be able to walk and ride stationary bike w/o inc hip or thigh pain. LTG Duration 10/16/22 strength Short Term Goal (STG) Pt will be indep w/HEP STG Duration 09/06/22 Alf Goal (LTG) Pt will score at lest 3/5 on LPM and at least 4+/5 on all LLE MMT B to improve strenth and improve pt functional ability. LTG Duration 10/16/22 sit to stands Impairment 7 sit to stands in 30 sec; 5 sit to stands in 20 sec Short Term Goal (STG) Pt will be able to do 9 sit to stands in 30 sec to show dec fall risk based on age related norms.. STG Duration 09/06/22 Alf Goal (LTG) Pt will be able to do 5 sit to stands in 14 sec to show dec fall risk based on age related norms. LTG Duration 10/16/22 Assessment Summary Assessment Pt good feedback to manual and response to self carryover use ball on wall. Improved glut faciliation manual PNF and carryover into HEP at wall , able complete heel lift, cued for quad fac for improve glut drive. More equal BLE glut drive with level pelvis during hallway gait, only 1 wt shif deviation to R when looking L but self recovery with cues for tall/core centering/heel drive each LE. Physical Therapy Plan Frequency and Duration Frequency of Treatment 2x/Week Duration of treatment (weeks) 12 Plan of Care Start Date 07/26/22 Plan of Care End Date 10/18/22 Therapeutic Interventions Therapeutic Interventions Balance Training,Gait Training ,Home Exercise Program,Joint Mobilizations,Manual Therapy, Neuromuscular Re-education, Orthotic/Prosthetic Management ,Patient/Caregiver Education, Self-Care/Home Management,Soft Tissue Mobilization,Taping, Therapeutic Activities, Therapeutic Exercises Modalities Cold Pack/Ice Massage,Electric Stimulation,Hot Packs, Traction- Mechanical, Ultrasound Next Visit Focus/Plan Next Note Type Treatment Note Next Visit Plan Continue review wt shifts to june, gait at wall (make sure knee ext occuring), bridge w/ june, Next tx lunging; manual to LE soft tissues and hip and pelvis joints to improve mobility; PNF for improved stability.
--- NOTE | 2022-08-21 18:09 | PT.OTN ---
Current Diagnoses Pain in right hip (08/21/22) Pain in left hip (08/21/22) Pain in right thigh (08/21/22) Pain in left thigh (08/21/22) Difficulty in walking, not elsewhere classified (08/21/22) Abnormal posture (08/21/22) Weakness (08/21/22) Physical Therapy Treatment Note PT-OP-A Visit Information Start: 07/25/22 17:48 Freq: Status: Active Protocol: Document 08/21/22 18:05 [facility] (Rec: 08/21/22 18:09 [facility] [id number]) Out-Patient Physical Therapy Visit Information Visit Information Visit Type Treatment Note Visit Note 11/15 Visit Start Time 09:05 Visit Stop Time 09:46 Total Visit Minutes 41 Visit Number 8 Number of MANAGER HUMAN [employer] Visits 0 PT-OP-B Current Condition Start: 07/25/22 17:48 Freq: Status: Active Protocol: Document 07/26/22 10:37 [facility] (Rec: 07/26/22 11:21 [facility] [id number]) Current Condition History of Current Condition Onset Date years Current Complaints B hip and thigh pain History of Current Condition Pt reports all of sudden, she was walking and she can't walk as she used to. She has tried to do the bike at the pool as MD recomended but it gave stabbing pain in the thighs ( about 1 year ago). She has difficulty getting up from sitting. All of this has happened recently. It has gotten worse since it first started. First it was only R hip then the L hip started hurting. She did come to PT 2019 or 2020 and she got PT exercises that she still does (milagro test, figure 4, hip abd stand, hip ex stand, bridge, squat). Pt reports she doen'st go to a yoga studio anymore as she feels like it is hard to get up/down from ground so only does it at home . Pt reports a few years ago, in the AM she couldn't move her legs and saw a doc and she got meds and exercises for back. Pt walks at least 30 min and lately she has tried to do 1 hr. The up is okay but the down she feels like she has a hard time controlling the down. Pt ends up having to limp and do small steps. In the beginning it is small steps then gets more. She tries to stretch out her back and pelvis and stride to help. WHen katlyn stands longer than an hr like in kitchen it is bad pain. Pt takes 2 advils every AM for the past week as there were a few days it was really bad so she started daily Treatment Goals Patient/Caregiver Goals Dec pain, get exercsies to help w/pain, be able to get up from chair easier,be able to hospice home care coordinator kitchen PT-OP-C Subjective Start: 07/25/22 17:48 Freq: Status: Active Protocol: Document 08/21/22 18:05 [facility] (Rec: 08/21/22 18:09 [facility] [id number]) OP-PT Subjective Patient Comments Patient Comments Pt reports cont to feel imrpovement w/hip PT-OP-D Balance Start: 07/25/22 17:48 Freq: Status: Active Protocol: Document 07/26/22 10:37 [facility] (Rec: 07/26/22 11:21 [facility] [id number]) Balance Tests Single Limb Standing Single Limb- Right >30 sec UEs to sides Single Limb- Left 20 sec UEs to sides PT-OP-E Functional Tests Start: 07/26/22 14:45 Freq: Status: Active Protocol: Document 07/26/22 10:37 [facility] (Rec: 07/26/22 14:49 [facility] [id number]) Functional Tests 30 Second Sit to Stand Test Score 7 Five Times Sit to Stand Test Score 20 sec PT-OP-F Manual Assessment Start: 07/25/22 17:48 Freq: Status: Active Protocol: Document 07/26/22 10:37 [facility] (Rec: 07/26/22 11:21 [facility] [id number]) Manual Assessments Soft Tissue Assessment Soft Tissue Mobility Assessment tenderness and tightness in glutes, piriformis, ITB , lat quads, iliacus B Joint Mobility Assessment Joint Mobility Assessment iliac crest height R higher; equal greater trochanter PT-OP-G Mobility & Gait Start: 07/25/22 17:48 Freq: Status: Active Protocol: Document 07/26/22 10:37 [facility] (Rec: 07/26/22 11:21 [facility] [id number]) OP Gait Assessment Comments Gait Comments occ adducts LEs and dec push off; rigid upper body PT-OP-J Posture/Palpation/Skin Start: 07/25/22 17:48 Freq: Status: Active Protocol: Document 07/26/22 10:37 [facility] (Rec: 07/26/22 11:21 [facility] [id number]) Posture Evaluation Terrie Postural Classification System Terrie Postural Classifications Posterior/Posterior Vertebral Compression Test 2 Lumbar Protective Mechanism Left AP 1 Lumbar Protective Mechanism Right AP 0 Lumbar Protective Mechanism Left PA 0 Lumbar Protective Mechanism Right PA 1 Comments Posture Comments slight R SB in standing PT-OP-K Range of Motion Start: 07/25/22 17:48 Freq: Status: Active Protocol: Document 07/26/22 10:37 [facility] (Rec: 07/26/22 11:21 [facility] [id number]) Hip Goniometric Range of Motion Hip Right Active Flexion w/Knee Flexed 108 Straight Leg Raise 76 Internal Rotation 28 External Rotation 8 Left Active Flexion w/Knee Flexed 94 Straight Leg Raise 75 Internal Rotation 21 External Rotation 16 PT-OP-L Special Tests Start: 07/25/22 17:48 Freq: Status: Active Protocol: Document 07/26/22 10:37 [facility] (Rec: 07/26/22 11:21 [facility] [id number]) Special Tests Hip Special Tests Slump Test Results Dural tension L; dural & neural tension R FADDIR Test Results pos pain B JOSE DAVID Test Results pos pain B Scour Test Test Results neg B Straight Leg Raise Comments B inc tension w/DF PT-OP-M Strength Start: 07/25/22 17:48 Freq: Status: Active Protocol: Document 07/26/22 10:37 [facility] (Rec: 07/26/22 11:21 [facility] [id number]) Hip Strength Hip Manual Muscle Testing Right Flexion (L2) 4 Good Extension (S1) 4- Good- Abduction 4+ Good+ Adduction 4- Good- External Rotation 3+ Fair+ Internal Rotation 3+ Fair+ Left Flexion (L2) 3+ Fair+ Extension (S1) 4- Good- Abduction 3+ Fair+ Adduction 4+ Good+ External Rotation 4 Good Internal Rotation 4 Good Knee Strength Knee Manual Muscle Testing Right Flexion (S2) 5 Normal Extension (L3) 5 Normal Left Flexion (S2) 4 Good Extension (L3) 4 Good Ankle/Foot Strength Ankle and Foot Manual Muscle Testing Right Dorsiflexion (L4) 4+ Good+ Plantarflexion (S1) 5 Normal Left Dorsiflexion (L4) 4+ Good+ Plantarflexion (S1) 5 Normal Comments 20 heel raises B PT-OP-Q Treatments Start: 07/25/22 17:48 Freq: Status: Active Protocol: Document 08/21/22 18:05 [facility] (Rec: 08/21/22 18:09 [facility] [id number]) Gym Equipment Sport Cord wt shift Cord/Resistance green Reps/Duration 10 Comments B mirror in front Therapeutic Exercises Standing Exercises step ups Standing Exercise Name w/alt march Side bilateral Equipment Used 6 in Reps/Minutes 10 wt shifts Standing Exercise Name wt shift into LE progressed to SLS w/alt march Side bilateral Equipment Used mirror and opp hand holding counter Reps/Minutes 5 Comments focus on no lean and full wt shift gait at wall Side bilateral Reps/Minutes 10sec x2 B Comments inc time for set up Manual Therapy Treatment Soft Tissue Mobilization adductors Body Location L Mobilization Type Rolling Intensity/Depth Moderate Body Position Hooklying Comments w/hip IR/ER hip flexor Body Location L Mobilization Type Sustained Pressure Intensity/Depth Moderate Comments w/ER/IR and hip flex PROm Joint Mobilizations innominate Comments L pubic inf FM hip Joint L inf FM & IR FM hooklying Neuro Re-Education Treatment Other Activities PNF Details L Reps/Duration 8 min Comments ant elevation progressed from facilition fo traction w/LE pattern to COI and dissociation w/COI PT-OP-R Modalities Start: 07/25/22 17:48 Freq: Status: Active Protocol: Document 08/07/22 10:59 [facility] (Rec: 08/07/22 11:03 [facility] [id number]) Hot Pack/Cold Pack Treatment Cold Pack Location B hips Patient Position Hooklying Treatment Duration (minutes) 10 Patient Tolerance Good Comments w/ strap and bolster under LEs . PT-OP-T Assessment and Plan Start: 07/25/22 17:48 Freq: Status: Active Protocol: Document 08/21/22 18:05 [facility] (Rec: 08/21/22 18:09 [facility] [id number]) Physical Therapy Assessment Goals pain Short Term Goal (STG) Pt will be able to hospice home care coordinator kitchen as needed w/o inc hip pain or thigh pain. STG Duration 09/16/22 Ore Sampler Goal (LTG) Pt iwll be able to walk and ride stationary bike w/o inc hip or thigh pain. LTG Duration 10/16/22 strength Short Term Goal (STG) Pt will be indep w/HEP STG Duration 09/06/22 Custodial Goal (LTG) Pt will score at lest 3/5 on LPM and at least 4+/5 on all LLE MMT B to improve strenth and improve pt functional ability. LTG Duration 10/16/22 sit to stands Impairment 7 sit to stands in 30 sec; 5 sit to stands in 20 sec Short Term Goal (STG) Pt will be able to do 9 sit to stands in 30 sec to show dec fall risk based on age related norms.. STG Duration 09/06/22 Custodial Goal (LTG) Pt will be able to do 5 sit to stands in 14 sec to show dec fall risk based on age related norms. LTG Duration 10/16/22 Assessment Summary Assessment Pt did well with exercises and was able to progress but odes require cues for knee ext w/ wt acceptance activities. Imrpovign L hip range overall for pt. Physical Therapy Plan Frequency and Duration Frequency of Treatment 2x/Week Duration of treatment (weeks) 12 Plan of Care Start Date 07/26/22 Plan of Care End Date 10/18/22 Next Visit Focus/Plan Next Note Type Treatment Note Next Visit Plan Continue review wt shifts to june, gait at wall (make sure knee ext occuring), Next tx lunging; manual to LE soft tissues and hip and pelvis joints to improve mobility; PNF for improved stability.
--- NOTE | 2022-08-24 12:43 | PT.OTN ---
Current Diagnoses Pain in right hip (08/24/22) Pain in left hip (08/24/22) Pain in right thigh (08/24/22) Pain in left thigh (08/24/22) Difficulty in walking, not elsewhere classified (08/24/22) Abnormal posture (08/24/22) Weakness (08/24/22) Physical Therapy Treatment Note PT-OP-A Visit Information Start: 07/25/22 17:48 Freq: Status: Active Protocol: Document 08/24/22 11:27 [facility] (Rec: 08/24/22 12:34 [facility] [id number]) Out-Patient Physical Therapy Visit Information Visit Information Visit Type Treatment Note Visit Note 12/16 Visit Start Time 11:31 Visit Stop Time 12:19 Total Visit Minutes 49 Visit Number 9 Number of FRONT EDGER Visits 1 PT-OP-B Current Condition Start: 07/25/22 17:48 Freq: Status: Active Protocol: Document 07/26/22 10:37 [facility] (Rec: 07/26/22 11:21 [facility] [id number]) Current Condition History of Current Condition Onset Date years Current Complaints B hip and thigh pain History of Current Condition Pt reports all of sudden, she was walking and she can't walk as she used to. She has tried to do the bike at the pool as MD recomended but it gave stabbing pain in the thighs ( about 1 year ago). She has difficulty getting up from sitting. All of this has happened recently. It has gotten worse since it first started. First it was only R hip then the L hip started hurting. She did come to PT 2019 or 2020 and she got PT exercises that she still does (javon test, figure 4, hip abd stand, hip ex stand, bridge, squat). Pt reports she doen'st go to a yoga studio anymore as she feels like it is hard to get up/down from ground so only does it at home . Pt reports a few years ago, in the AM she couldn't move her legs and saw a doc and she got meds and exercises for back. Pt walks at least 30 min and lately she has tried to do 1 hr. The up is okay but the down she feels like she has a hard time controlling the down. Pt ends up having to limp and do small steps. In the beginning it is small steps then gets more. She tries to stretch out her back and pelvis and stride to help. WHen katlyn stands longer than an hr like in kitchen it is bad pain. Pt takes 2 advils every AM for the past week as there were a few days it was really bad so she started daily Treatment Goals Patient/Caregiver Goals Dec pain, get exercsies to help w/pain, be able to get up from chair easier,be able to strategy planning consultant kitchen PT-OP-C Subjective Start: 07/25/22 17:48 Freq: Status: Active Protocol: Document 08/24/22 11:27 [facility] (Rec: 08/24/22 12:34 [facility] [id number]) OP-PT Subjective Patient Comments Patient Comments I can't believe how much better I am doing. Pt reports she just found her massage ball last night so hasn't used it yet. She has been using a ceramic rolling pin on thighs and calves and plans to get a wooden one. She does her ex's; the groin stretch is intense. Sleep is an ongoing issue. Patient Reported Progress Improving PT-OP-D Balance Start: 07/25/22 17:48 Freq: Status: Active Protocol: Document 07/26/22 10:37 [facility] (Rec: 07/26/22 11:21 [facility] [id number]) Balance Tests Single Limb Standing Single Limb- Right >30 sec UEs to sides Single Limb- Left 20 sec UEs to sides PT-OP-E Functional Tests Start: 07/26/22 14:45 Freq: Status: Active Protocol: Document 07/26/22 10:37 [facility] (Rec: 07/26/22 14:49 [facility] [id number]) Functional Tests 30 Second Sit to Stand Test Score 7 Five Times Sit to Stand Test Score 20 sec PT-OP-F Manual Assessment Start: 07/25/22 17:48 Freq: Status: Active Protocol: Document 07/26/22 10:37 [facility] (Rec: 07/26/22 11:21 [facility] [id number]) Manual Assessments Soft Tissue Assessment Soft Tissue Mobility Assessment tenderness and tightness in glutes, piriformis, ITB , lat quads, iliacus B Joint Mobility Assessment Joint Mobility Assessment iliac crest height R higher; equal greater trochanter PT-OP-G Mobility & Gait Start: 07/25/22 17:48 Freq: Status: Active Protocol: Document 07/26/22 10:37 [facility] (Rec: 07/26/22 11:21 [facility] [id number]) OP Gait Assessment Comments Gait Comments occ adducts LEs and dec push off; rigid upper body PT-OP-J Posture/Palpation/Skin Start: 07/25/22 17:48 Freq: Status: Active Protocol: Document 07/26/22 10:37 [facility] (Rec: 07/26/22 11:21 [facility] [id number]) Posture Evaluation Terrie Postural Classification System Terrie Postural Classifications Posterior/Posterior Vertebral Compression Test 2 Lumbar Protective Mechanism Left AP 1 Lumbar Protective Mechanism Right AP 0 Lumbar Protective Mechanism Left PA 0 Lumbar Protective Mechanism Right PA 1 Comments Posture Comments slight R SB in standing PT-OP-K Range of Motion Start: 07/25/22 17:48 Freq: Status: Active Protocol: Document 07/26/22 10:37 [facility] (Rec: 07/26/22 11:21 [facility] [id number]) Hip Goniometric Range of Motion Hip Right Active Flexion w/Knee Flexed 108 Straight Leg Raise 76 Internal Rotation 28 External Rotation 8 Left Active Flexion w/Knee Flexed 94 Straight Leg Raise 75 Internal Rotation 21 External Rotation 16 PT-OP-L Special Tests Start: 07/25/22 17:48 Freq: Status: Active Protocol: Document 07/26/22 10:37 [facility] (Rec: 07/26/22 11:21 [facility] [id number]) Special Tests Hip Special Tests Slump Test Results Dural tension L; dural & neural tension R FADDIR Test Results pos pain B JOSE DAVID Test Results pos pain B Scour Test Test Results neg B Straight Leg Raise Comments B inc tension w/DF PT-OP-M Strength Start: 07/25/22 17:48 Freq: Status: Active Protocol: Document 07/26/22 10:37 [facility] (Rec: 07/26/22 11:21 [facility] [id number]) Hip Strength Hip Manual Muscle Testing Right Flexion (L2) 4 Good Extension (S1) 4- Good- Abduction 4+ Good+ Adduction 4- Good- External Rotation 3+ Fair+ Internal Rotation 3+ Fair+ Left Flexion (L2) 3+ Fair+ Extension (S1) 4- Good- Abduction 3+ Fair+ Adduction 4+ Good+ External Rotation 4 Good Internal Rotation 4 Good Knee Strength Knee Manual Muscle Testing Right Flexion (S2) 5 Normal Extension (L3) 5 Normal Left Flexion (S2) 4 Good Extension (L3) 4 Good Ankle/Foot Strength Ankle and Foot Manual Muscle Testing Right Dorsiflexion (L4) 4+ Good+ Plantarflexion (S1) 5 Normal Left Dorsiflexion (L4) 4+ Good+ Plantarflexion (S1) 5 Normal Comments 20 heel raises B PT-OP-Q Treatments Start: 07/25/22 17:48 Freq: Status: Active Protocol: Document 08/24/22 11:27 [facility] (Rec: 08/24/22 12:34 [facility] [id number]) Gym Equipment Sport Cord walking Exercise Details fwd/bwd w/ mirror Cord/Resistance green Reps/Duration 5-6 steps Comments cues for wider BELL, neutral foot position R>L wt shift Cord/Resistance green Reps/Duration 10 Comments B mirror in front Therapeutic Exercises Supine Exercises Diagonal press Supine Exercise Name knee to chest w/ knee bent/ toes pulled up. Press opp hand into knee Side bilateral Reps/Minutes 30 sec / 5 breath cycles Comments corrected initial form. bridge Supine Exercise Name w/march Side bilateral Reps/Minutes 8x2- cues slower pacing Comments cues for slow stepping maintaining level pelvis neutral figure 4 Side bilateral Reps/Minutes 60s ea Comments cued for breath cycles vs sec to improve hold time javon test Supine Exercise Name good anterior hip stretch Side bilateral Equipment Used hi-low table, toe touch, pain- free range Reps/Minutes 30 sec x2 Comments good form hug knee then lower other side for stretch Standing Exercises step ups Standing Exercise Name w/alt march Side bilateral Equipment Used 6 in, 8 in Reps/Minutes 10 Comments cued controlled eccentric, slower pacing, neutral foot pos; R toe scuff 8 wt shifts Standing Exercise Name wt shift into LE progressed to SLS w/alt march Side bilateral Equipment Used opp hand holding counter Reps/Minutes 5 Comments focus on no lean and full wt shift gait at wall Side bilateral Reps/Minutes 10sec x2 B Comments cue glute fac push, wider BELL squat Standing Exercise Name over chair Side bilateral Resistance 8Lb (two 4# dumbbells) Reps/Minutes 2x5 Comments good LE form, cued chin tuck to maintain neutral c-sp Self-Care/Home Management Treatment Education Patient Education Body Mechanics,Home Exercise Program,Pain Management Other Education HEP review. Reviewed ergonomic sleeping positions handout (pt given) and various options for maintaining spine and LE alignment with sleeping. PT-OP-R Modalities Start: 07/25/22 17:48 Freq: Status: Active Protocol: Document 08/07/22 10:59 [facility] (Rec: 08/07/22 11:03 [facility] [id number]) Hot Pack/Cold Pack Treatment Cold Pack Location B hips Patient Position Hooklying Treatment Duration (minutes) 10 Patient Tolerance Good Comments w/ strap and bolster under LEs . PT-OP-T Assessment and Plan Start: 07/25/22 17:48 Freq: Status: Active Protocol: Document 08/24/22 11:27 [facility] (Rec: 08/24/22 12:34 [facility] [id number]) Physical Therapy Assessment Impairments Impairments Activity Tolerance,Balance, Functional Activities, Functional Mobility,Gait,Pain, Posture,ROM,Soft Tissue Mobility,Strength Goals pain Short Term Goal (STG) Pt will be able to strategy planning consultant kitchen as needed w/o inc hip pain or thigh pain. STG Duration 09/16/22 [facility] Goal (LTG) Pt iwll be able to walk and ride stationary bike w/o inc hip or thigh pain. LTG Duration 10/16/22 strength Short Term Goal (STG) Pt will be indep w/HEP STG Duration 09/06/22 Fuel Management Handler Goal (LTG) Pt will score at lest 3/5 on LPM and at least 4+/5 on all LLE MMT B to improve strenth and improve pt functional ability. LTG Duration 10/16/22 sit to stands Impairment 7 sit to stands in 30 sec; 5 sit to stands in 20 sec Short Term Goal (STG) Pt will be able to do 9 sit to stands in 30 sec to show dec fall risk based on age related norms.. STG Duration 09/06/22 [facility] Goal (LTG) Pt will be able to do 5 sit to stands in 14 sec to show dec fall risk based on age related norms. LTG Duration 10/16/22 Assessment Summary Assessment Treatment focus on HEP review and sleeping positions w/ supports. Zenaida continues to do well with ex's with occasional reminders for slower pacing. She has 8 step into garage and is challenged w/8 step ups w/ hip ER compensation strategy and one instance of R toe contact. She still requires cues for knee extension w/ gait at wall, and larger base of support w/ neutral foot position R>L. Pt requires cues for gentle stretching in pain-free range with positive feedback response for hip flexor stretch in Javon position modified w/ toe touch. She requires correction for initial form with diagonal press. Reviewed ergonomic sleeping positions handout (pt given) and various options for maintaining spine and LE alignment with sleeping. Physical Therapy Plan Frequency and Duration Frequency of Treatment 2x/Week Duration of treatment (weeks) 12 Plan of Care Start Date 07/26/22 Plan of Care End Date 10/18/22 Therapeutic Interventions Therapeutic Interventions Balance Training,Gait Training ,Home Exercise Program,Joint Mobilizations,Manual Therapy, Neuromuscular Re-education, Orthotic/Prosthetic Management ,Patient/Caregiver Education, Self-Care/Home Management,Soft Tissue Mobilization,Taping, Therapeutic Activities, Therapeutic Exercises Modalities Cold Pack/Ice Massage,Electric Stimulation,Hot Packs, Traction- Mechanical, Ultrasound Next Visit Focus/Plan Next Note Type Treatment Note Next Visit Plan Continue review wt shifts to june, gait at wall (make sure knee ext occuring), Next tx lunging; manual to LE soft tissues and hip and pelvis joints to improve mobility; PNF for improved stability.
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
--- NOTE | 2022-10-11 17:16 | PT.OTN ---
Current Diagnoses Pain in right hip (10/11/22) Pain in left hip (10/11/22) Pain in right thigh (10/11/22) Pain in left thigh (10/11/22) Difficulty in walking, not elsewhere classified (10/11/22) Abnormal posture (10/11/22) Weakness (10/11/22) Physical Therapy Treatment Note PT-OP-A Visit Information Start: 07/25/22 17:48 Freq: Status: Active Protocol: Document 10/11/22 16:07 [facility] (Rec: 10/11/22 17:16 [facility] [id number]) Out-Patient Physical Therapy Visit Information Visit Information Visit Type Progress Note Visit Note 07/16 Visit Start Time 16:06 Visit Number 21 Number of MAP COLORER Visits 0 PT-OP-B Current Condition Start: 07/25/22 17:48 Freq: Status: Active Protocol: Document 07/26/22 10:37 [facility] (Rec: 07/26/22 11:21 [facility] [id number]) Current Condition History of Current Condition Onset Date years Current Complaints B hip and thigh pain History of Current Condition Pt reports all of sudden, she was walking and she can't walk as she used to. She has tried to do the bike at the pool as MD recomended but it gave stabbing pain in the thighs ( about 1 year ago). She has difficulty getting up from sitting. All of this has happened recently. It has gotten worse since it first started. First it was only R hip then the L hip started hurting. She did come to PT 2019 or 2020 and she got PT exercises that she still does (milagro test, figure 4, hip abd stand, hip ex stand, bridge, squat). Pt reports she doen'st go to a yoga studio anymore as she feels like it is hard to get up/down from ground so only does it at home . Pt reports a few years ago, in the AM she couldn't move her legs and saw a doc and she got meds and exercises for back. Pt walks at least 30 min and lately she has tried to do 1 hr. The up is okay but the down she feels like she has a hard time controlling the down. Pt ends up having to limp and do small steps. In the beginning it is small steps then gets more. She tries to stretch out her back and pelvis and stride to help. WHen seh stands longer than an hr like in kitchen it is bad pain. 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 PT-OP-D Balance Start: 07/25/22 17:48 Freq: Status: Active Protocol: Document 07/26/22 10:37 [facility] (Rec: 07/26/22 11:21 [facility] [id number]) Balance Tests Single Limb Standing Single Limb- Right >30 sec UEs to sides Single Limb- Left 20 sec UEs to sides PT-OP-E Functional Tests Start: 07/26/22 14:45 Freq: Status: Active Protocol: Document 09/25/22 08:34 [facility] (Rec: 09/25/22 11:04 [facility] [id number]) Functional Tests Five Times Sit to Stand Test Score 12 sec PT-OP-F Manual Assessment Start: 07/25/22 17:48 Freq: Status: Active Protocol: Document 07/26/22 10:37 [facility] (Rec: 07/26/22 11:21 [facility] [id number]) Manual Assessments Soft Tissue Assessment Soft Tissue Mobility Assessment tenderness and tightness in glutes, piriformis, ITB , lat quads, iliacus B Joint Mobility Assessment Joint Mobility Assessment iliac crest height R higher; equal greater trochanter PT-OP-G Mobility & Gait Start: 07/25/22 17:48 Freq: Status: Active Protocol: Document 07/26/22 10:37 [facility] (Rec: 07/26/22 11:21 [facility] [id number]) OP Gait Assessment Comments Gait Comments occ adducts LEs and dec push off; rigid upper body PT-OP-J Posture/Palpation/Skin Start: 07/25/22 17:48 Freq: Status: Active Protocol: Document 10/11/22 16:07 [facility] (Rec: 10/11/22 17:16 [facility] [id number]) Posture Evaluation [facility] Postural Classification System Lumbar Protective Mechanism Left AP 2 Lumbar Protective Mechanism Right AP 3 Lumbar Protective Mechanism Left PA 3 Lumbar Protective Mechanism Right PA 3 PT-OP-K Range of Motion Start: 07/25/22 17:48 Freq: Status: Active Protocol: Document 07/26/22 10:37 [facility] (Rec: 07/26/22 11:21 [facility] [id number]) Hip Goniometric Range of Motion Hip Right Active Flexion w/Knee Flexed 108 Straight Leg Raise 76 Internal Rotation 28 External Rotation 8 Left Active Flexion w/Knee Flexed 94 Straight Leg Raise 75 Internal Rotation 21 External Rotation 16 PT-OP-L Special Tests Start: 07/25/22 17:48 Freq: Status: Active Protocol: Document 07/26/22 10:37 [facility] (Rec: 07/26/22 11:21 [facility] [id number]) Special Tests Hip Special Tests Slump Test Results Dural tension L; dural & neural tension R FADDIR Test Results pos pain B JOSE DAVID Test Results pos pain B Scour Test Test Results neg B Straight Leg Raise Comments B inc tension w/DF PT-OP-M Strength Start: 07/25/22 17:48 Freq: Status: Active Protocol: Document 10/11/22 16:07 [facility] (Rec: 10/11/22 17:16 [facility] [id number]) Hip Strength Hip Manual Muscle Testing Right Flexion (L2) 5 Normal Extension (S1) 5 Normal Abduction 5 Normal Adduction 5 Normal External Rotation 5 Normal Internal Rotation 5 Normal Left Flexion (L2) 4+ Good+ Extension (S1) 5 Normal Abduction 5 Normal Adduction 5 Normal External Rotation 5 Normal Internal Rotation 5 Normal Knee Strength Knee Manual Muscle Testing Right Flexion (S2) 5 Normal Extension (L3) 5 Normal Left Flexion (S2) 5 Normal Extension (L3) 5 Normal Ankle/Foot Strength Ankle and Foot Manual Muscle Testing Right Dorsiflexion (L4) 5 Normal Plantarflexion (S1) 5 Normal Left Dorsiflexion (L4) 5 Normal Plantarflexion (S1) 5 Normal Comments 20 heel raises B PT-OP-Q Treatments Start: 07/25/22 17:48 Freq: Status: Active Protocol: Document 10/11/22 16:07 [facility] (Rec: 10/11/22 17:16 [facility] [id number]) Therapeutic Exercises Supine Exercises bug Side bilateral Reps/Minutes 8 ea Diagonal press Supine Exercise Name flex & diagonal DL Side bilateral Reps/Minutes 30 sec ea bridge Supine Exercise Name w/alt march Side bilateral Reps/Minutes 6 Comments cues no breathholding figure 4 Side bilateral Reps/Minutes 15 sec ea milagro test Side bilateral Reps/Minutes 10 sec Comments for review Standing Exercises walk Standing Exercise Name june walk w/holds 5 sec in SL Side bilateral Reps/Minutes x4 SL ea Comments rail prn; cues knee ext lunges Standing Exercise Name walking lunge Side bilateral Reps/Minutes 10ft x2 Comments cues for knee tracking and no pelvis rot gait at wall Side bilateral Reps/Minutes 10sec x3 B Comments cue glute fac push, no knee flex hip ext Side bilateral Equipment Used match-e-be-nash-she-wish band band Reps/Minutes x6 ea Comments fwd lean hip hinge to bar hip abd Standing Exercise Name bar Side bilateral Resistance green band at rail Reps/Minutes x8 ea squat Standing Exercise Name squats over mesh chair Side bilateral Reps/Minutes x8 Comments cues for glute at end range Manual Therapy Treatment Soft Tissue Mobilization thigh Body Location circumfrential B Mobilization Type Myofascial Release Intensity/Depth Moderate Body Position Hooklying Comments w/IR/ER adductors Body Location B Mobilization Type Rolling Intensity/Depth Moderate Body Position Hooklying Comments w/hip IR/ER PT-OP-R Modalities Start: 07/25/22 17:48 Freq: Status: Active Protocol: Document 09/07/22 09:19 [facility] (Rec: 09/07/22 10:03 [facility] [id number]) Hot Pack/Cold Pack Treatment Cold Pack Location L hips Patient Position Hooklying Treatment Duration (minutes) 10 Patient Tolerance Good Comments w/ strap and bolster under LEs . 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 08/28/22: Progressing: still stiff sitting to long and hips hurt into upright extension into standing, she states last about 1 hr before body tires and back/ hips start to hurt need sit. STG Duration achieved Custodial Goal (LTG) Pt iwll be able to walk and ride stationary bike w/o inc hip or thigh pain. 08/28/22: hasn't use a bike yet , has fallen off personal bike in past so hesitant to get on one again. Able to tolerate 8 m in on bike without pain more tiring. 09/25-has done bike in PT but not at gym w/o issue. RLE minor discomfort and is able to adjust her movement LTG Duration bike in PT okay, no problem w/ walks strength Short Term Goal (STG) Pt will be indep w/HEP 08/28/22: progressing: HEP step ups, resisted abd, bridge, wt squat, supine core press hip, SL glut drive heel lift plank stance at wall. STG Duration achieved Signal Worker Goal (LTG) Pt will score at lest 3/5 on LPM and at least 4+/5 on all LLE MMT B to improve strenth and improve pt functional ability. 08/28/22: porgressing: B knee flex/ext 5/5, R hip: abd 5/5, ext 4+/5, flex 4/5, add 4/5, IR 5/5 , ER 5/5 L hip: abd 5/5 , ext 4/5 , flex 4/5, add 4+/5, IR 5/5 , ER 5/5 09/25-achieved MMT; LPM 2/5 except R AP 1/5 LTG Duration achieved mostly sit to stands Impairment 7 sit to stands in 30 sec; 5 sit to stands in 20 sec Short Term Goal (STG) Pt will be able to do 9 sit to stands in 30 sec to show dec fall risk based on age related norms.. 08/28/22: GOAL MET: 11 reps in 30 sec. STG Duration 09/06/22 GOAL MET 08/28/22 Custodial Goal (LTG) Pt will be able to do 5 sit to stands in 14 sec to show dec fall risk based on age related norms. LTG Duration achieved Assessment Summary Assessment Pt has met most goals and is doing well w/only occ aspects of pain. She is indep w/HEP and was given a few cues today and progressed some exercises . DC to HEP at this time w/pt making signficaint progress through course of PT. Physical Therapy Plan Discharge Physical Therapy Discharge Reasons Goals Met
== END 2022-12-31 15:34 ==
LOC: PHYS 16:00
PROVIDERS: Family Provider Family Medicine; PCP Family Medicine; Referring Provider Family Medicine; Visit Provider Family Medicine
DX: M25.551 Pain in right hip (principal); M25.552 Pain in left hip; M79.651 Pain in right thigh; M79.652 Pain in left thigh; R53.1 Weakness; R29.3 Abnormal posture; R26.2 Difficulty in walking, not elsewhere classified
CPT/HCPCS: 97010; 97110; 97112; 97140; 97162; 97530; 97535; 97750

== ENCOUNTER → 2023-01-16 08:48 | Outpatient (CLI) | payer MEDICARE, SELFPAY ==
[2023-01-16 10:20] LABS: Alanine Aminotransferase 14 IU/L (<35); Albumin 3.6 g/dL (3.5-5.0); Albumin Globulin Ratio 1.3 (1.0-2.8); Alkaline Phosphatase 54 U/L (38-126); Aspartate Aminotransferase 19 IU/L (14-36); BUN Creatinine Ratio 17.1 (6-22); Bilirubin Total 1.1 mg/dL (0.2-1.3); Blood Urea Nitrogen 13 mg/dL (7-17); Calcium 9.2 mg/dL (8.4-10.2); Carbon Dioxide 28 mmol/L (22-32); Chloride 103 mmol/L (98-107); Estimated Glomerular Filt Rate > 60 mL/min (>60); Globulin 2.8 g/dL (1.7-4.1); Glucose 101 mg/dL (80-110); HEMOLYSIS < 15 (0-50); Potassium 4.6 mmol/L (3.4-5.1); Sodium 137 mmol/L (137-145); Total Protein 6.4 g/dL (6.3-8.2)
== END ==
PROVIDERS: Family Provider Family Medicine; PCP Family Medicine; Referring Provider Family Medicine; Visit Provider Family Medicine
DX: I10 Essential (primary) hypertension (principal); E78.5 Hyperlipidemia, unspecified
CPT/HCPCS: 36415; 80053

== ENCOUNTER → 2023-05-30 14:06 | Outpatient (CLI) | payer MEDICARE, SELFPAY ==
--- NOTE | 2023-05-30 | DI.MG.S_ITS ---
BILATERAL DIGITAL SCREENING MAMMOGRAM 3D/2D WITH CAD: 05/30/2023 CLINICAL: Routine screening. Comparison is made to exams dated: 03/28/2022 mammogram, 03/24/2021 mammogram, and 03/29/2020 mammogram - [facility]. Both breasts are heterogeneously dense, which may obscure small masses (category c / 51-75% glandular tissue). Current study was also evaluated with a Computer Aided Detection (CAD) system. No significant masses, calcifications, or other findings are seen in either breast. There has been no significant interval change. IMPRESSION: NEGATIVE There is no mammographic evidence of malignancy. A 1 year screening mammogram is recommended. Based on the Tyrer Cuzick model (a risk assessment model) the patient's lifetime risk is 0.4% and her 10 year risk is 0.0%. According to the ACR, ACS, and NCCN guidelines, an annual breast MRI exam along with mammogram is recommended if the patient's lifetime risk is 20% or greater. This exam was interpreted at Station ID: [id number]. NOTE: For mammograms, a report in lay terms will be sent to the patient. Approximately 15% of breast malignancies will not be visualized mammographically. In the management of a palpable breast mass, a negative mammogram must not discourage biopsy of a clinically suspicious lesion. Electronically Signed By: Brandon johnson/lizette:05/30/2023 16:08:52 letter sent: Normal Exam ACR BI-RADS Category 1: Negative [id number]
== END ==
PROVIDERS: Family Provider Family Medicine; PCP Family Medicine; Referring Provider Family Medicine; Visit Provider Family Medicine
DX: Z12.31 Encounter for screening mammogram for malignant neoplasm of breast (principal); R92.333 Mammographic heterogeneous density, bilateral breasts
CPT/HCPCS: 77063; 77067

== ENCOUNTER → 2023-07-24 08:04 | Outpatient (CLI) | payer MEDICARE, SELFPAY ==
[2023-07-24 09:11] LABS: Add Manual Diff / Slide Review NO; Basophils Absolute Auto 100 /uL (0-100); Basophils Percent Auto 1.4 % (0-2); Eosinophils Absolute Auto 200 /uL (0-450); Eosinophils Percent Auto 3.2 % (2-4); Hematocrit 40.3 % (36-46); Hemoglobin 13.6 g/dL (12.0-16.0); Lymphocytes Absolute Auto 1500 /uL (1100-4500); Lymphocytes Percent Auto 32.1 % (25-40); Mean Corpuscular HGB Conc 33.6 % (30-36); Monocytes Absolute Auto 400 /uL (0-900); Monocytes Percent Auto 8.4 % (3-14); Neutrophils Absolute Auto 2600 /uL (1500-7000); Neutrophils Percent Auto 54.9 % (50-75); Platelet Count 325 X10^3/uL (150-400); Red Blood Cell Count 4.38 X10^6/uL (4.0-5.2); Red Cell Distribution Width 13.4 % (11.6-14.8); White Blood Cell Count 4.8 X10^3/uL (4.5-11.0)
[2023-07-24 09:31] LABS: Alanine Aminotransferase 24 IU/L (<35); Albumin 4.1 g/dL (3.5-5.0); Albumin Globulin Ratio 1.6 (1.0-2.8); Alkaline Phosphatase 55 U/L (38-126); Aspartate Aminotransferase 27 IU/L (14-36); BUN Creatinine Ratio 26.3 (6-22); Bilirubin Total 1.5 mg/dL (0.2-1.3); Blood Urea Nitrogen 20 mg/dL (7-17); Calcium 9.3 mg/dL (8.4-10.2); Carbon Dioxide 31 mmol/L (22-32); Chloride 106 mmol/L (98-107); Cholesterol 209 mg/dL (140-199); Estimated Glomerular Filt Rate > 60 mL/min (>60); Globulin 2.5 g/dL (1.7-4.1); Glucose 93 mg/dL (80-110); HDL Cholesterol 66 mg/dL (40-60); HEMOLYSIS < 15 (0-50); LDL Cholesterol Calculated 123 mg/dL (<100); Potassium 4.5 mmol/L (3.4-5.1); Sodium 139 mmol/L (137-145); Total Protein 6.6 g/dL (6.3-8.2); Triglycerides 100 mg/dL (35-150)
== END ==
LOC: LAB 08:05
PROVIDERS: Family Provider Family Medicine; PCP Family Medicine; Referring Provider Family Medicine; Visit Provider Family Medicine
DX: Z13.6 Encounter for screening for cardiovascular disorders (principal); I10 Essential (primary) hypertension; R17 Unspecified jaundice
CPT/HCPCS: 36415; 80053; 80061; 85025

== ENCOUNTER → 2023-07-30 11:44 | Outpatient (CLI) | payer MEDICARE, SELFPAY ==
--- NOTE | 2023-07-30 11:45 | DI.RAD.S_ITS ---
PROCEDURE: XR DEXA AXIAL SKELETON INDICATIONS: routine screening COMPARISON: [facility], IMTIAZ, XR DEXA AXIAL SKELETON, 05/19/2020, 14:27. [facility], IMTIAZ, XR DEXA AXIAL SKELETON, 03/21/2018, 13:22. FINDINGS: Lumbar Spine: Bone mineral density 0.982 g/cm2, T score -0.6. Bone mineral density on exam from 05/19/2020 was 0.969 g/cm2, although the exam was performed on a different scanner and direct comparison is not possible. Left Hip: Bone mineral density is 0.865 g/cm2, T score -0.6. Prior bone mineral density measurement was 0.868. Left Femoral Neck: Bone mineral density is 0.797 g/cm2, T score -0.5. Right Hip: Bone mineral density 0.887 g/cm2, T score -0.5. Prior bone mineral density measurement was 0.880. Right Femoral Neck: Bone mineral density 0.862 g/cm2, T score 0.1. FRAX score not calculated due to normal bone mineral density. (T score greater or equal to -1.0 to: NORMAL) (T score from -1.1 to -2.4: OSTEOPENIA) (T score less than or equal to -2.5: OSTEOPOROSIS) IMPRESSION: By WHO criteria, patient has normal bone mineral density. Approved by: Poncho Marin M.D. on 07/30/2023 at 12:43
== END ==
PROVIDERS: Family Provider Family Medicine; PCP Family Medicine; Referring Provider Family Medicine; Visit Provider Family Medicine
DX: M85.89 Other specified disorders of bone density and structure, multiple sites (principal)
CPT/HCPCS: 77080

== ENCOUNTER 2024-03-21 12:38 | Emergency (ER) | payer MEDICARE, SELFPAY ==
[2024-03-21 12:49] VITALS: BP 163/76; PULSE 67; RESP 16; TEMP 36.6; O2SAT 99; BMI 21.0
--- NOTE | 2024-03-21 12:53 | DI.RAD.S_ITS ---
PROCEDURE: XR WRIST LT MIN 3V INDICATIONS: FOOSH TECHNIQUE: 3 views of the wrist were acquired. COMPARISON: None. FINDINGS: Bones: There is a transverse fracture of the distal radius with apex volar angulation and foreshortening. There is also a minimally displaced fracture of the ulnar styloid. Degenerative changes of the 1st CMC joint are shown. Mineralization and alignment are otherwise normal. Soft tissues: No suspicious soft tissue calcifications. Soft tissue swelling is present about the wrist. IMPRESSION: Distal radial and ulnar styloid fractures. Dictated by: Tonya Cano M.D. on 03/21/2024 at 12:31 Approved by: Tonya Cano M.D. on 03/21/2024 at 12:32
--- NOTE | 2024-03-21 12:53 | DI.RAD.S_ITS ---
PROCEDURE: XR FOREARM LT 2V INDICATIONS: FOOSH TECHNIQUE: 2 views of the forearm were acquired. COMPARISON: None. FINDINGS: Bones: There is a distal radial fracture with foreshortening and apex volar angulation. The ulnar styloid fracture is not well evaluated. There is no proximal radial or ulnar fracture.. Soft tissues: No suspicious soft tissue calcifications or masses. IMPRESSION: Distal radial fracture. No proximal radial or ulnar fracture. Dictated by: Tonya Cano M.D. on 03/21/2024 at 12:40 Approved by: Tonya Cano M.D. on 03/21/2024 at 12:41
[2024-03-21 13:56] VITALS: PULSE 84; O2SAT 98
[2024-03-21 14:00] VITALS: PULSE 77; O2SAT 98
--- NOTE | 2024-03-21 14:06 | PC.NURSE ---
Left wrist deformity. states she was pulling a branch when she fell onto her side/back. Pt denies hitting head. Denies taking blood thinners. No abrasions or bruising noted to head. No c spine tenderness. No spine tenderness. GCS 15. Radial pulses 2+ . Cap refill <2 seconds
[2024-03-21 14:30] VITALS: PULSE 76; O2SAT 98
[2024-03-21 15:00] VITALS: PULSE 80; O2SAT 98
--- NOTE | 2024-03-21 15:31 | ED.UPPEXIN ---
HPI - Extremity Injury (Upper) General Chief Complaint: Extremity Injury, Upper Stated Complaint: poss fracture Larm Time Seen by Provider: 03/21/24 14:44 Source: patient, RN notes reviewed and old records reviewed Mode of arrival: Ambulatory Limitations: no limitations History of Present Illness HPI narrative: 83-year-old female history of hypertension and dyslipidemia who had a ground level fall on outstretched hand onto her left arm earlier today. Patient states there was a branch that fell that has been very windy she went to pull it fell and fell onto her outstretched arm. She denies hitting her. Denies any headache or neck pain, no back pain. She is pain at the wrist. Denies numbness tingling or weakness. She does have little bit of deformity and swelling. Patient states home medications are lisinopril and a statin denies any anticoagulants. States remote history of wrist or hand fracture but she does not recall which side. Allergies reported to aspirin and latex. No tobacco, alcohol or recreational drugs. She was accompanied by her family. Related Data Home Medications Medication Instructions Recorded Confirmed calcium carbonate 600 mg-vitamin 1 tab PO DAILY 09/08/20 12/17/23 D3 20 mcg (800 unit) chewable tablet (Caltrate 600 plus D) [id number]-bbg-plwh-FA-vit K PO 05/31/22 12/17/23 [Adults Multivitamin] glucosamine sulfate [Glucosamine] PO 01/14/23 12/17/23 Previous Rx's Medication Instructions Recorded lisinopril 5 mg tablet See Rx Instructions .Route 07/18/23 .COMPLEX #90 tabs pravastatin 40 mg tablet See Rx Instructions .Route 07/18/23 .COMPLEX #90 tabs tramadol 50 mg tablet 50 mg PO Q6H PRN pain #14 tabs 03/21/24 Allergies Allergy/AdvReac Type Severity Reaction Status Date / Time aspirin Allergy Mild (WITH Verified 03/21/24 12:49 OTHER MEDICATION) RASH ON CHEST latex Allergy Mild RASH AND Verified 03/21/24 12:49 ITCHING IF LEFT ON SKIN TOO LONG Review of Systems Review of Systems ROS Unobtainable: All systems reviewed & are unremarkable except as noted in HPI and below Patient History Medical History End of life care Osteopenia Elevated bilirubin Right hip pain Lower back pain Hypertension Well adult Surgical History Status post tubal ligation Status post appendectomy Social History Smoking Status: Never smoker second hand exposure: No alcohol intake: current (wine 3 times a week.) substance use type: does not use Smoking Status: Never smoker Exam Narrative Exam Narrative: GENERAL: Alert and oriented x three, elderly female in mild distress HEENT: Head normocephalic, atraumatic, EOMI, pupils reactive, face symmetric, moist mucous membranes NECK: Supple, full range of motion, no cervical vertebral tenderness CARDIOVASCULAR: Regular rate and rhythm without murmurs, rubs or gallops. RESPIRATORY: Breath sounds equal bilaterally, no wheezes rales or rhonchi. ABDOMEN: Soft, nontender. Normoactive bowel sounds all 4 quadrants. No guarding or rebound, rigidity, no mass EXTREMITIES: Decreased range of motion of the left wrist with some obvious deformity particularly over the distal ulna. Patient does not have any bony tenderness of the, carpal bones, elbow, humerus or shoulder. She was good range of motion otherwise besides at the wrist. 2+ radial pulse. Cap refill less than 2 seconds in all 5 fingers. No abrasions or lacerations. Normal sensation throughout. Does have some tenderness over the distal radius and. No clubbing or edema. Neurovascularly intact NEUROLOGICAL: Cranial nerves II through XII grossly intact. Moving all extremities SKIN: Warm, dry, no petechiae, no rashes or lesions. Initial Vital Signs Initial Vital Signs: Vital Signs Temperature 97.9 F 03/21/24 12:49 Pulse Rate 67 03/21/24 12:49 Respiratory Rate 16 03/21/24 12:49 Blood Pressure 163/76 H 03/21/24 12:49 Pulse Oximetry 99 03/21/24 12:49 Oxygen Delivery Method Room Air 03/21/24 12:49 Course Orders Ordered: ED Orders 03/21/24 12:53 XR forearm LT 2V Stat XR wrist LT min 3V Stat Discontinued Medications Lidocaine HCl (Lidocaine 2% Inj Sdv 5ml) 10 ml TOP NOW ONE Stop: 03/21/24 15:57 Last Admin: 03/21/24 17:12 Dose: 10 ml Documented By: KW Vital Signs Vital signs: Vital Signs - 8 hr 03/21/24 12:49 03/21/24 13:56 03/21/24 14:00 Temperature 97.9 F Pulse Rate 67 84 77 Respiratory Rate 16 Blood Pressure 163/76 H Pulse Oximetry 99 98 98 Oxygen Delivery Method Room Air 03/21/24 14:30 03/21/24 15:00 03/21/24 17:14 Temperature 98.3 F Pulse Rate 76 80 74 Respiratory Rate 19 Blood Pressure 196/93 H Pulse Oximetry 98 98 97 Oxygen Delivery Method Room Air MDM - Extremity Injury (Upper) Imaging Data Extremity x-ray #1: Radiologist's Impression: [address] [address] XRay Report Signed Patient: Zenaida Rios MR#: [id number] : 1940 Acct:[id number] Age/Sex: 83 / F Date of Service: 03/21/24 Loc: ED Accession Number: [id number] Procedure: XR wrist LT min 3V Ordering Provider: Aarti Salguero D.O. PROCEDURE: XR WRIST LT MIN 3V INDICATIONS: FOOSH TECHNIQUE: 3 views of the wrist were acquired. COMPARISON: None. FINDINGS: Bones: There is a transverse fracture of the distal radius with apex volar angulation and foreshortening. There is also a minimally displaced fracture of the ulnar styloid. Degenerative changes of the 1st CMC joint are shown. Mineralization and alignment are otherwise normal. Soft tissues: No suspicious soft tissue calcifications. Soft tissue swelling is present about the wrist. IMPRESSION: Distal radial and ulnar styloid fractures. Dictated by: Tonya Cano M.D. on 03/21/2024 at 12:31 Approved by: Tonya Cano M.D. on 03/21/2024 at 12:32 Extremity x-ray #2: Radiologist's Impression: [address] [address] XRay Report Signed Patient: Zenaida Rios MR#: [id number] : 1940 Acct:[id number] Age/Sex: 83 / F Date of Service: 03/21/24 Loc: ED Accession Number: [id number] Procedure: XR forearm LT 2V Ordering Provider: Aarti Salguero D.O. PROCEDURE: XR FOREARM LT 2V INDICATIONS: FOOSH TECHNIQUE: 2 views of the forearm were acquired. COMPARISON: None. FINDINGS: Bones: There is a distal radial fracture with foreshortening and apex volar angulation. The ulnar styloid fracture is not well evaluated. There is no proximal radial or ulnar fracture.. Soft tissues: No suspicious soft tissue calcifications or masses. IMPRESSION: Distal radial fracture. No proximal radial or ulnar fracture. Dictated by: Tonya Cano M.D. on 03/21/2024 at 12:40 Approved by: Tonya Cano M.D. on 03/21/2024 at 12:41 [facility] Narrative Medical decision making narrative: 1416: Spoke with Dr. Tracee Turner, orthopedic surgery: asks for a little reduction. Images reviewed. Discussed with patient she was agreeable to hematoma block. Discussed risks versus benefits. Patient had some mild improvement in her pain. Sugar-tong splint was placed by myself and nursing. Patient was neurovascularly intact afterwards. Had direct pressure placed over the distal radius and ulna for improvement in alignment. Discharge Plan Departure Patient Disposition: Home Clinical Impression: Closed fracture distal radius and ulna Instructions: DI for Wrist Fracture Activity Restrictions/Additional Instructions: Follow up with the orthopedic surgery, call Saturday morning to set up follow up appointment. You do have a fracture or break of the distal radius and ulna in your wrist. Can take acetaminophen up to a 1000 mg every 6 hours as needed for pain. If inadequate for pain you can take tramadol 1-2 tablets every 6 hours as needed with acetaminophen. This medication can make you sleepy do not drive, perform hazardous activities or make any major decisions while taking it. This medication will make you constipated please take a stool softener such as colace once to twice daily until stools are soft and regular. Prescription sent to [facility] in [place]. Splint Care: Keep splint clean and dry. Elevated affected body part to decrease swelling. OK to use ice pack on the affected body part. Use for 15-20 minutes each time, for 5-6x per day. If you develop worsening pain, numbness, tingling, discoloration of the affected body part, loosen the splint by loosening the REX wrap, and either see your doctor for an urgent re-assessment, or return to the Emergency Department. Return to the Emergency Department for any new or worsening symptoms. Prescriptions: New tramadol 50 mg tablet 50 mg PO Q6H PRN (Reason: pain) Qty: 14 0RF No Action Caltrate 600 plus D 600 mg (1,500 mg)-800 unit tablet,chewable 1 tab PO DAILY glucosamine sulfate [Glucosamine] PO lisinopril 5 mg tablet See Rx Instructions .ROUTE .COMPLEX Qty: 90 3RF Dose Instruction: TAKE ONE TABLET BY MOUTH ONE TIME DAILY Rx Instructions: TAKE ONE TABLET BY MOUTH ONE TIME DAILY pravastatin 40 mg tablet See Rx Instructions .ROUTE .COMPLEX Qty: 90 3RF Dose Instruction: TAKE ONE TABLET BY MOUTH ONE TIME DAILY Rx Instructions: TAKE ONE TABLET BY MOUTH ONE TIME DAILY [id number]-adq-sqjg-FA-vit K [Adults Multivitamin] PO Referrals: Werner Toscano DO [Primary Care Provider] - Tracee Turner MD [Physician] - Stand Alone Forms: Patient Portal/API/Survey
[2024-03-21] MEDS: LIDOCAINE 2% INJ SDV 5ML 10 ML TOP (17:12)
[2024-03-21 17:14] VITALS: BP 196/93; PULSE 74; RESP 19; TEMP 36.8; O2SAT 97
== END 2024-03-21 17:16 | disposition home or self-care (01) ==
PROVIDERS: Emergency Provider Emergency Medicine; Family Provider Family Medicine; PCP Family Medicine
DX: S52.502A Unspecified fracture of the lower end of left radius, initial encounter for closed fracture (principal); S52.602A Unspecified fracture of lower end of left ulna, initial encounter for closed fracture; W01.0XXA Fall on same level from slipping, tripping and stumbling without subsequent striking against object, initial encounter; Y93.89 Activity, other specified; Y92.096 Garden or yard of other non-institutional residence as the place of occurrence of the external cause
CPT/HCPCS: 29125; 73090; 73110; 99283

== ENCOUNTER → 2024-06-11 07:41 | Outpatient (CLI) | payer MEDICARE, SELFPAY ==
[2024-06-11 08:48] LABS: Add Manual Diff / Slide Review NO; Basophils Absolute Auto 100 /uL (0-100); Basophils Percent Auto 1.4 % (0-2); Eosinophils Absolute Auto 200 /uL (0-450); Eosinophils Percent Auto 4.9 % (2-4); Hematocrit 39.8 % (36-46); Hemoglobin 13.5 g/dL (12.0-16.0); Lymphocytes Absolute Auto 1400 /uL (1100-4500); Lymphocytes Percent Auto 30.2 % (25-40); Mean Corpuscular HGB Conc 33.9 % (30-36); Mean Corpuscular Hemoglobin 31.1 PG (26-34); Mean Corpuscular Volume 91.8 fL (80-100); Monocytes Absolute Auto 400 /uL (0-900); Monocytes Percent Auto 8.5 % (3-14); Neutrophils Absolute Auto 2600 /uL (1500-7000); Platelet Count 310 X10^3/uL (150-400); Red Blood Cell Count 4.34 X10^6/uL (4.0-5.2); Red Cell Distribution Width 13.7 % (11.6-14.8); White Blood Cell Count 4.7 X10^3/uL (4.5-11.0)
[2024-06-11 09:22] LABS: Albumin Globulin Ratio 1.7 (1.0-2.8); Alkaline Phosphatase 57 U/L (38-126); BUN Creatinine Ratio 26.4 (6-22); Bilirubin Total 0.9 mg/dL (0.2-1.3); Blood Urea Nitrogen 19 mg/dL (7-17); Calcium 9.3 mg/dL (8.4-10.2); Carbon Dioxide 29 mmol/L (22-32); Chloride 105 mmol/L (98-107); Estimated Glomerular Filt Rate > 60 mL/min (>60); Globulin 2.4 g/dL (1.7-4.1); Glucose 98 mg/dL (80-110); HEMOLYSIS < 15 (0-50); Potassium 4.5 mmol/L (3.4-5.1); Sodium 137 mmol/L (137-145); Total Protein 6.4 g/dL (6.3-8.2)
[2024-06-11 09:39] LABS: TSH w/ Reflex to FT4 3.01 uIU/mL (0.47-4.68)
[2024-06-11 09:41] LABS: Alanine Aminotransferase 20 IU/L (<35); Aspartate Aminotransferase 26 IU/L (14-36)
--- NOTE | 2024-06-11 12:40 | DI.MG.S_ITS ---
MM screening mammo BI: 06/11/2024. BI-RADS: 1 CLINICAL: 83-year old female for bilateral screening mammogram. No Tyrer-Cuzick risk score calculation due to patient's age being over 85 years old. No personal or first-degree family history of breast cancer. PRIOR EXAMS 05/30/2023, 03/28/2022, 03/24/2021, 03/29/2020, 03/28/2019, 03/22/2018, 03/15/2017, 03/08/2016, 03/07/2015. MAMMOGRAPHY TECHNIQUE: 2D and 3D (tomosynthesis) digital mammographic views obtained, with additional images as needed for full coverage. Current study was also evaluated with a Computer Aided Detection (CAD) system. DENSITY C. The breasts are heterogeneously dense, which may obscure small masses. MAMMOGRAPHY FINDINGS Bilateral: No suspicious mass, asymmetry, microcalcification, or other abnormality seen. IMPRESSION: * No evidence of malignancy. RECOMMENDATIONS Bilateral * Annual screening mammography. OVERALL ASSESSMENT CATEGORY BI-RADS-1: Negative. [employer] recommends annual screening mammography beginning at age 40 for women with average risk of breast cancer. ELECTRONICALLY SIGNED: Graham Prieto M.D. on 06/12/2024 at 02:16:56 PM PT Interpreting Station ID: [id number]
[2024-06-12 10:42] LABS: Fecal Immunochemical Test Negative (Negative)
== END ==
PROVIDERS: Family Provider Family Medicine; PCP Family Medicine; Referring Provider Family Medicine; Visit Provider Family Medicine
DX: R92.333 Mammographic heterogeneous density, bilateral breasts (principal); Z12.31 Encounter for screening mammogram for malignant neoplasm of breast; I10 Essential (primary) hypertension; E78.5 Hyperlipidemia, unspecified; Z12.11 Encounter for screening for malignant neoplasm of colon
CPT/HCPCS: 36415; 77063; 77067; 80053; 82274; 84443; 85025

== ENCOUNTER → 2025-01-14 08:08 | Outpatient (CLI) | payer MEDICARE, SELFPAY ==
[2025-01-14 08:47] LABS: Add Manual Diff / Slide Review NO; Hematocrit 41.1 % (36-46); Hemoglobin 14.0 g/dL (12.0-16.0); Lymphocytes Absolute Auto 1400 /uL (1100-4500); Mean Corpuscular HGB Conc 34.2 % (30-36); Mean Corpuscular Hemoglobin 31.2 PG (26-34); Mean Corpuscular Volume 91.2 fL (80-100); Platelet Count 310 X10^3/uL (150-400)
[2025-01-14 09:42] LABS: Alanine Aminotransferase 16 IU/L (<35); Albumin 4.3 g/dL (3.5-5.0); Albumin Globulin Ratio 1.7 (1.0-2.8); Alkaline Phosphatase 60 U/L (38-126); Blood Urea Nitrogen 18 mg/dL (7-17); Calcium 9.5 mg/dL (8.4-10.2); Carbon Dioxide 28 mmol/L (22-32); Chloride 103 mmol/L (98-107); Cholesterol 204 mg/dL (140-199); Estimated Glomerular Filt Rate > 60 mL/min (>60); Globulin 2.5 g/dL (1.7-4.1); Glucose 100 mg/dL (70-99); HDL Cholesterol 73 mg/dL (40-60); HEMOLYSIS < 15 (0-50); Potassium 4.7 mmol/L (3.4-5.1); Sodium 138 mmol/L (137-145); Total Protein 6.8 g/dL (6.3-8.2); Triglycerides 94 mg/dL (35-150)
[2025-01-14 09:59] LABS: TSH w/ Reflex to FT4 3.57 uIU/mL (0.47-4.68)
== END ==
PROVIDERS: Family Provider Family Medicine; PCP Family Medicine; Referring Provider Family Medicine; Visit Provider Family Medicine
DX: Z00.00 Encounter for general adult medical examination without abnormal findings (principal); E78.5 Hyperlipidemia, unspecified; I10 Essential (primary) hypertension
CPT/HCPCS: 36415; 80053; 80061; 84443; 85025